=== PATIENT | female | born 1935 | race Two or more races ===

== ENCOUNTER 2016-11-08 16:40 | Inpatient (IN) | payer OTHER, MEDICARE ==
[2016-11-08] MEDS ORDERED: SODIUM CHLORIDE 1,000 ML IV STA (17:20)
--- NOTE | 2016-11-08 17:23 | PDOC ---
History of Present Illness - General History Source: Patient Exam Limitations: No Limitations <Roni Angulo - Last Filed: 11/08/16 19:21> - History of Present Illness Initial Comments: 11/08/16 17:41 The patient is a 80 year old female, with a significant past medical history of Rheumatoid Arthritis, sciatica (medrol dose pack 6mg), PE s/p knee surgery, colon polyps, and GERD, who presents to the emergency department with low-grade fevers (Tmax 99.5F) and persistent cough for a week with new onset of right sided pleuritic chest pain and hypoxia, 81% O2 saturation on room air at PCP office today. She reports her pain radiates from under her right breast to her right flank, worse with deep inspiration and cough. She states her cough keeps her up at night. She states her cough is nonproductive. She reports having a negative cardiac catheterization in 2012. She denies headache and dizziness. She denies fever, chills, nausea, vomit, diarrhea and constipation. She denies dysuria, frequency, urgency and hematuria. Allergies: ciprofloxacin and morphine Social history: Denies toxic habits. Pt is a retired nurse. PCP - Dr. Jem Pedraza <Gloria Dela Cruz - Last Filed: 11/08/16 21:15> - General Chief Complaint: Respiratory Stated Complaint: COUGH, SOB Time Seen by Provider: 11/08/16 16:44 Past History - Past Medical History Anemia: No Asthma: No Cancer: No Cardiac Disorders: No CVA: No COPD: No CHF: No Dementia: No Diabetes: No GI Disorders: Yes (GERD H/O COLONIC POLYPS) Disorders: No HTN: No Hypercholesterolemia: No Liver Disease: No Seizures: No Thyroid Disease: No - Surgical History Abdominal Surgery: Yes Appendectomy: Yes Cardiac Surgery: Yes (CARDIAC CATH NEGATIVE) Cholecystectomy: No Lung Surgery: No Neurologic Surgery: No Orthopedic Surgery: Yes (LEFT KNEE REPLACEMENT 2006 RIGHT KNEE SURGERY) - Psycho/Social/Smoking Cessation Hx Suicidal Ideation: No Smoking History: Unknown if ever smoked Have you smoked in the past 12 months: No Number of Cigarettes Smoked Daily: 0 If you are a former smoker, when did you quit?: 1982 Hx Alcohol Use: No Drug/Substance Use Hx: No Substance Use Type: Alcohol Hx Substance Use Treatment: No <Roni Angulo - Last Filed: 11/08/16 19:21> <Gloria Dela Cruz - Last Filed: 11/08/16 21:15> - Past Medical History Allergies/Adverse Reactions: Allergies Allergy/AdvReac Type Severity Reaction Status Date / Time ciprofloxacin [From Cipro] Allergy Intermediate Rash Verified 11/08/16 16:43 ciprofloxacin HCl Allergy Intermediate Rash Verified 11/08/16 16:43 [From Cipro] morphine Allergy Intermediate rash, Verified 11/08/16 16:43 vomiting Home Medications: Ambulatory Orders Biotin/Calcium Carbonate [Biotin 800 Mcg Tablet] 1 each PO DAILY tablet Cholecalciferol (Vitamin D3) [Vitamin D3] 2,000 unit PO DAILY capsule 06/06/16 Folic Acid 1 mg PO DAILY tablet 09/09/16 Methotrexate Sodium [Methotrexate] 2.5 mg PO 5 TABS ON SUNDAYS tablet 11/08/16 Methylprednisolone [Medrol Dose Ish] 4 mg PO 1 AND 1/2 TABS DAILY tablet Review of Systems - Review of Systems Able to Perform ROS?: Yes Comments:: 11/08/16 17:42 GENERAL/CONSTITUTIONAL: (+) fevers. No chills. No weakness. HEAD, EYES, EARS, NOSE AND THROAT: No change in vision. No ear pain or discharge. No sore throat. CARDIOVASCULAR: No chest pain or shortness of breath. RESPIRATORY: (+) dry cough, pleuritic right-sided chest pain, and hypoxia. wheezing, or hemoptysis. GASTROINTESTINAL: No nausea, vomiting, diarrhea or constipation. GENITOURINARY: No dysuria, frequency, or change in urination. MUSCULOSKELETAL: No joint or muscle swelling or pain. No neck or back pain. SKIN: No rash NEUROLOGIC: No headache, vertigo, loss of consciousness, or change in strength/ sensation. ENDOCRINE: No increased thirst. No abnormal weight change. HEMATOLOGIC/LYMPHATIC: No anemia, easy bleeding, or history of blood clots. ALLERGIC/IMMUNOLOGIC: No hives or skin allergy. <Gloria Dela Cruz - Last Filed: 11/08/16 21:15> *Physical Exam - Vital Signs Last Vital Signs Temp Pulse Resp BP Pulse Ox 99 F 117 H 24 122/103 86 L 11/08/16 16:40 11/08/16 16:40 11/08/16 16:40 11/08/16 16:40 11/08/16 16:40 <Roni Angulo - Last Filed: 11/08/16 19:21> - Vital Signs Last Vital Signs Temp Pulse Resp BP Pulse Ox 99 F 117 H 24 122/103 86 L 11/08/16 16:40 11/08/16 16:40 11/08/16 16:40 11/08/16 16:40 11/08/16 16:40 - Physical Exam Comments: 11/08/16 17:43 GENERAL: Awake, alert, and fully oriented, in no acute distress HEAD: No signs of trauma EYES: PERRLA, EOMI, sclera anicteric, conjunctiva clear ENT: Auricles normal inspection, hearing grossly normal, nares patent, oropharynx clear without exudates. Moist mucosa NECK: Normal ROM, supple, no lymphadenopathy, JVD, or masses LUNGS: (+) crackles at bilateral bases with ttp at right lateral ribs. Breath sounds equal. No wheezes HEART: Regular rate and rhythm, normal S1 and S2, no murmurs, rubs or gallops ABDOMEN: Soft, nontender, normoactive bowel sounds. No guarding, no rebound. No masses EXTREMITIES: Normal range of motion, no edema. No clubbing or cyanosis. No cords, erythema, or tenderness NEUROLOGICAL: Cranial nerves II-XII intact. Normal speech, normal gait. Sensation intact in upper and lower extremities. 5/5 motor strength in upper and lower extremities. No pronator drift. Finger to nose intact. Rapid alternations intact. SKIN: Warm, Dry, normal turgor, no rashes or lesions noted. <Gloria Dela Cruz - Last Filed: 11/08/16 21:15> Heart Score/ECG Review #1 ECG reviewed & interpreted by me at: 17:30 11/08/16 19:21 NSR 98, T wave flat II, III, avF, TWI V3-V6, no std/jenn, QTC 431 msec, normal axis, normal intervals <Roni Angulo - Last Filed: 11/08/16 19:21> ED Treatment Course - LABORATORY CBC & Chemistry Diagram: 11/08/16 17:05 11/08/16 17:05 - RADIOLOGY Radiology Studies Ordered: Category Date Time Status CHEST X-RAY PORTABLE* [RAD] Stat Radiology 11/08/16 17:17 Ordered <AdeleRoni - Last Filed: 11/08/16 19:21> - LABORATORY CBC & Chemistry Diagram: 11/08/16 17:05 11/08/16 17:05 - RADIOLOGY Radiograph Interpretation: 11/08/16 18:29 CXR was read by Dr. Almazan at 18:13 Impression: No active cardiopulmonary disease present 11/08/16 20:20 Chest CTA was read by Dr. Almazan at 20:20 Impression: There is no evidence of pulmonary embolism in the main pulmonary artery and its proximal bifurcations, bilaterally. Interval worsening interstitial and groundglass opacitites suggestive of chronic interstitial lung disease with superimposed infiltrates. No pneumothorax or pleural effusions <Gloria Dela Cruz - Last Filed: 11/08/16 21:15> Medical Decision Making - Medical Decision Making 11/08/16 17:21 A portion of this note was documented by scribe services under my direction. I have reviewed the details of the note, within reason, and agree with the documentation with the following case summary and management plan written by me. Patient treated in the ED. Nursing notes are reviewed and incorporated into the medical decision-making. Vital signs reviewed. Peripheral IV access obtained by the nurse, laboratory studies are drawn and sent, reviewed and interpreted by myself. Vital Signs Temp Pulse Resp BP Pulse Ox 99 F 117 H 24 122/103 86 L 11/08/16 16:40 11/08/16 16:40 11/08/16 16:40 11/08/16 16:40 11/08/16 16:40 80 year old female with past medical history of polymyalgia rheumatica, rheumatoid arthritis, sciatica presents from DR. Pedraza's office for cough, low grade fever, and hypoxemia. The patient was complaining of symptoms for 1 week of URI symptoms. Started to develop a recent R sided pleuritic chest pain. Started to develop SOB and chest congestion. NO production. No recent illnesses , sick contacts, recent travels. Pt went to visit Dr. Pedraza. Noticed that her O2 saturation is 81%. Pt denies chest pain. Came into the ED to r/o PNA. I agree with the plan. Patient will need to r/o PNA. Chest xray. Sepsis protocol. Supplemental nasal cannula brings O2 saturation to 95%. IVF. \ Admit. 11/08/16 19:12 CBC, BMP 11/08/16 17:05 11/08/16 17:05 CMP Sodium 136 mmol/L (136-145) 11/08/16 17:05 Potassium 3.5 mmol/L (3.5-5.1) 11/08/16 17:05 Chloride 101 mmol/L (98-107) 11/08/16 17:05 Carbon Dioxide 25 mmol/L (22-28) 11/08/16 17:05 Anion Gap 10 (8-16) 11/08/16 17:05 BUN 11 mg/dl (7-18) D 11/08/16 17:05 Creatinine 0.7 mg/dl (0.6-1.3) 11/08/16 17:05 Creat Clearance w eGFR > 60 (>60) 11/08/16 17:05 Random Glucose 150 mg/dl (74-106) H D 11/08/16 17:05 Calcium 8.4 mg/dl (8.4-10.2) 11/08/16 17:05 Total Bilirubin 0.7 mg/dl (0.2-1.0) D 11/08/16 17:05 AST 22 U/L (10-42) D 11/08/16 17:05 ALT 19 U/L (10-40) D 11/08/16 17:05 Alkaline Phosphatase 56 U/L (32-92) D 11/08/16 17:05 Total Protein 6.8 g/dl (6.4-8.3) 11/08/16 17:05 Albumin 3.2 g/dl (3.5-5.0) L 11/08/16 17:05 Chest xray reviewed. No acute findings. Given mildly elevated WBC and negative chest xray (and now from what I've found out, that patient has a distant history of PE in setting of knee surgery), will obtain a CTA to r/o PE. CTA chest pending. Case signed out to DR. Varela for further management and disposition. <Roni Angulo - Last Filed: 11/08/16 19:21> *DC/Admit/Observation/Transfer <Roni Angulo - Last Filed: 11/08/16 19:21> - Attestations Scribe Attestion: 11/08/16 17:43 Documentation prepared by Gloria Morenzi, acting as medical billing assistant for Roni Angulo MD, <Gloria Dela Cruz - Last Filed: 11/08/16 21:15> Diagnosis at time of Disposition: Hypoxia, Pneumonia - Discharge Dispostion Condition at time of disposition: Stable - Referrals Referrals: Jem Pedraza MD [Primary Care Provider] -
[2016-11-08 17:40] LABS: BASOPHIL 0.2 % (0-2.0); EOSINOPHIL 0.3 % (0-4.5); MCH 29.1 pg (25.7-33.7); MCHC 33.1 g/dl (32.0-36.0); MEAN CELL VOLUME 88.1 fl (80-96); MEAN PLT VOLUME 8.7 fl (7.5-11.1); PLATELET COUNT 273 K/MM3 (134-434); RDW 15.4 % (11.6-15.6); WHITE BLOOD COUNT 11.6 K/mm3 (4.0-10.8)
[2016-11-08 18:01] LABS: ALBUMIN 3.2 g/dl (3.5-5.0); ALK PHOS 56 U/L (32-92); ANION GAP 10 (8-16); BILIRUBIN,TOTAL 0.7 mg/dl (0.2-1.0); CALCIUM 8.4 mg/dl (8.4-10.2); CO2 25 mmol/L (22-28); COCKROFT - GAULT 87.2695; CREATININE 0.7 mg/dl (0.6-1.3); GLUCOSE,RANDOM 150 mg/dl (74-106); SGOT/AST 22 U/L (10-42); SGPT/ALT 19 U/L (10-40); TOT PROT 6.8 g/dl (6.4-8.3)
[2016-11-08 18:02] LABS: ACTIVATED PTT 24.8 SECONDS (24.0-38.9)
[2016-11-08 18:07] LABS: INR 1.31 (0.82-1.09); PROTHROMBIN TIME (PATIENT) 14.6 SEC (10.2-13.0)
--- NOTE | 2016-11-08 20:28 | PDOC ---
*Physical Exam - Vital Signs Last Vital Signs Temp Pulse Resp BP Pulse Ox 99 F 87 20 135/62 98 11/08/16 16:40 11/08/16 19:00 11/08/16 19:00 11/08/16 19:00 11/08/16 19:00 ED Treatment Course - LABORATORY CBC & Chemistry Diagram: 11/08/16 17:05 11/08/16 17:05 - ADDITIONAL ORDERS Additional order review: Laboratory Results 11/08/16 11/08/16 11/08/16 17:20 17:05 17:05 INR PTT (Actin FS) Sodium 136 Potassium 3.5 Chloride 101 Carbon Dioxide 25 Anion Gap 10 BUN 11 D Creatinine 0.7 Creat Clearance w eGFR > 60 Random Glucose 150 H D Lactic Acid 1.8 Calcium 8.4 Total Bilirubin 0.7 D AST 22 D ALT 19 D Alkaline Phosphatase 56 D B-Natriuretic Peptide 145.85 Total Protein 6.8 Albumin 3.2 L 11/08/16 17:05 INR 1.31 H PTT (Actin FS) 24.8 L Sodium Potassium Chloride Carbon Dioxide Anion Gap BUN Creatinine Creat Clearance w eGFR Random Glucose Lactic Acid Calcium Total Bilirubin AST ALT Alkaline Phosphatase B-Natriuretic Peptide Total Protein Albumin 11/08/16 17:05 RBC 4.36 MCV 88.1 MCHC 33.1 RDW 15.4 D MPV 8.7 Neutrophils % 83.0 H D Lymphocytes % 10.7 D Monocytes % 5.8 Eosinophils % 0.3 Basophils % 0.2 - Medications Given in the ED: ED Medications Discontinued Medications Generic Name Dose Route Start Last Admin Trade Name Freq PRN Reason Stop Dose Admin Sodium Chloride 1,000 mls @ 1,000 mls/hr 11/08/16 17:20 11/08/16 17:45 Normal Saline - IV 11/08/16 18:19 1,000 mls/hr ASDIR STA Administration Progress Note - Progress Note Progress Note: Care of this patient was transferred to ok from Dr. Angulo at 1900 hrs. This is a 80-year-old female who comes in complaining of difficulty breathing and worsening respiratory symptoms. Patient was seen by her primary care doctor and sent in for evaluation. Patient O2 sats on arrival in the emergency room where the mid 80s on oxygen patient's O2 sats improved to the mid 90s. Patient had a workup including a CT [place] of the chest to rule out PE. The CT angiogram chest was negative for pulmonary embolism but does show chronic interstitial lung disease with a superimposed right lower lobe pneumonia. Blood cultures and antibiotics were done Patient will be admitted to an inpatient bed under the hospitalist service. *DC/Admit/Observation/Transfer Diagnosis at time of Disposition: Hypoxia, Pneumonia - Discharge Dispostion Condition at time of disposition: Stable Admit: Yes - Referrals Referrals: Jem Pedraza MD [Primary Care Provider] - - Patient Instructions - Post Discharge Activity
[2016-11-08] MEDS ORDERED: CEFTRIAXONE 1 GM in DEXTROSE 5%-WATER - 50 ML IVPB ONE (20:29)
[2016-11-08] MEDS ORDERED: cefTRIAXone SODIUM 1 GM VIAL ONE (20:30)
[2016-11-08 20:51] LABS: URINE APPEARANCE Clear; URINE BILIRUBIN Negative (NEGATIVE); URINE BLOOD 1+ (NEGATIVE); URINE COLOR YELLOW; URINE GLUCOSE (UA) Negative (NEGATIVE); URINE KETONE Negative (NEGATIVE); URINE LEUK ESTERASE Negative (NEGATIVE); URINE NITRITE Negative (NEGATIVE); URINE PROTEIN 1+ (NEGATIVE); URINE UROBILINOGEN 0.2 E.U/dl (0.2-1.0)
--- NOTE | 2016-11-08 20:51 | HP ---
CHIEF COMPLAINT: SOB, Cough PCP: Dr. Pedraza HISTORY OF PRESENT ILLNESS: This is a 80 y/o woman with a past medical history of Rheumatoid Arthritis (on Prednisone, Methotrexate), PE (s/p L- knee replacement), Sciatica. Who presents to the ED from her PCP's office with Hypoxia- Spo2 81% in the office and SOB x 4 -5 days. Patient reports having subjective fevers 99.5 at home. Patient reports increased GARCIA. Patient denies chills, dizziness, CP, AP, N/V/D, dysuria. Patient denies recent travel or sick contacts. 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 Family History: Mother: Alzheimer's, [place]- age 84 Father: Allergies ciprofloxacin [From Cipro] Allergy (Intermediate, Verified 11/08/16 16:43) Rash ciprofloxacin HCl [From Cipro] Allergy (Intermediate, Verified 11/08/16 16:43) Rash morphine Allergy (Intermediate, Verified 11/08/16 16:43) rash, vomiting HOME MEDICATIONS: Home Medications Medication Instructions Recorded Biotin/Calcium Carbonate [Biotin 1 each PO DAILY tablet 05/01/15 800 Mcg Tablet] Cholecalciferol (Vitamin D3) 2,000 unit PO DAILY capsule 06/06/16 [Vitamin D3] Folic Acid 1 mg PO DAILY tablet 09/09/16 Methotrexate Sodium [Methotrexate] 2.5 mg PO 5 TABS ON SUNDAYS tablet 11/08/16 Methylprednisolone [Medrol Dose 4 mg PO 1 AND 1/2 TABS DAILY 11/08/16 Ish] tablet REVIEW OF SYSTEMS CONSTITUTIONAL: fever Absent: chills, diaphoresis, generalized weakness, malaise, loss of appetite, weight change HEENT: Absent: rhinorrhea, nasal congestion, throat pain, throat swelling, difficulty swallowing, mouth swelling, ear pain, eye pain, visual changes CARDIOVASCULAR: Absent: chest pain, syncope, palpitations, irregular heart rate, lightheadedness , peripheral edema RESPIRATORY: shortness of breath, dyspnea with exertion Absent: cough, orthopnea, wheezing, stridor, hemoptysis GASTROINTESTINAL: constipation Absent: abdominal pain, abdominal distension, nausea, vomiting, diarrhea, melena , hematochezia GENITOURINARY: Absent: dysuria, frequency, urgency, hesitancy, hematuria, flank pain, genital pain MUSCULOSKELETAL: Absent: myalgia, arthralgia, joint swelling, back pain, neck pain SKIN: Absent: rash, itching, pallor HEMATOLOGIC/IMMUNOLOGIC: Absent: easy bleeding, easy bruising, lymphadenopathy, frequent infections ENDOCRINE: Absent: unexplained weight gain, unexplained weight loss, heat intolerance, cold intolerance NEUROLOGIC: Absent: headache, focal weakness or paresthesias, dizziness, unsteady gait, seizure, mental status changes, bladder or bowel incontinence PSYCHIATRIC: Absent: anxiety, depression, suicidal or homicidal ideation, hallucinations. PHYSICAL EXAMINATION Vital Signs - 24 hr 11/08/16 11/08/16 11/08/16 16:40 16:45 19:00 Temperature 99 F Pulse Rate 117 H 110 H Pulse Rate [ 87 Left Apical] Respiratory 24 20 Rate Blood Pressure 122/103 Blood Pressure 135/62 [Right Arm] O2 Sat by Pulse 86 L 95 98 Oximetry (%) 11/08/16 20:33 Temperature 97.8 F Pulse Rate Pulse Rate [ 89 Left Apical] Respiratory 31 H Rate Blood Pressure Blood Pressure 136/62 [Right Arm] O2 Sat by Pulse 97 Oximetry (%) GENERAL: Awake, alert, and fully oriented, in no acute distress. HEAD: Normal with no signs of trauma. EYES: Pupils equal, round and reactive to light, extraocular movements intact, sclera anicteric, conjunctiva clear. No lid lag. EARS, NOSE, THROAT: Ears normal, nares patent, oropharynx clear without exudates. Moist mucous membranes. NECK: Normal range of motion, supple without lymphadenopathy, JVD, or masses. LUNGS: Air exchange to Left lobes, RUL, RML, diminished to RLL. No wheezes, and no crackles. No accessory muscle use. HEART: Regular rate and rhythm, normal S1 and S2 without murmur, rub or gallop. ABDOMEN: Soft, nontender, not distended, normoactive bowel sounds, no guarding, no rebound, no masses. No hepatomegaly or splenomegaly. MUSCULOSKELETAL: Normal range of motion at all joints. No bony deformities or tenderness. No CVA tenderness. UPPER EXTREMITIES: 2+ pulses, warm, well-perfused. No cyanosis. No clubbing. No peripheral edema. LOWER EXTREMITIES: 2+ pulses, warm, well-perfused. No calf tenderness. No peripheral edema. NEUROLOGICAL: Cranial nerves II-XII intact. Normal speech. Normal gait. PSYCHIATRIC: Cooperative. Good eye contact. Appropriate mood and affect. SKIN: Warm, dry, normal turgor, no rashes or lesions noted, normal capillary refill. Laboratory Results - last 24 hr 11/08/16 11/08/16 11/08/16 17:05 17:05 17:05 WBC 11.6 H D RBC 4.36 Hgb 12.7 Hct 38.4 MCV 88.1 MCHC 33.1 RDW 15.4 D Plt Count 273 MPV 8.7 Neutrophils % 83.0 H D Lymphocytes % 10.7 D Monocytes % 5.8 Eosinophils % 0.3 Basophils % 0.2 INR 1.31 H PTT (Actin FS) 24.8 L Sodium 136 Potassium 3.5 Chloride 101 Carbon Dioxide 25 Anion Gap 10 BUN 11 D Creatinine 0.7 Creat Clearance w eGFR > 60 Random Glucose 150 H D Lactic Acid Calcium 8.4 Total Bilirubin 0.7 D AST 22 D ALT 19 D Alkaline Phosphatase 56 D B-Natriuretic Peptide Total Protein 6.8 Albumin 3.2 L 11/08/16 11/08/16 17:05 17:20 WBC RBC Hgb Hct MCV MCHC RDW Plt Count MPV Neutrophils % Lymphocytes % Monocytes % Eosinophils % Basophils % INR PTT (Actin FS) Sodium Potassium Chloride Carbon Dioxide Anion Gap BUN Creatinine Creat Clearance w eGFR Random Glucose Lactic Acid 1.8 Calcium Total Bilirubin AST ALT Alkaline Phosphatase B-Natriuretic Peptide 145.85 Total Protein Albumin ASSESSMENT/PLAN: This is a 80 y/o woman with RA, PE, Sciatica, Admitted for RLL, Hypoxia for further evaluation of their emergent condition. Plan: 1. Community Acquired Pneumonia - CURB65 Score 2 - Blood Cultures-pending - CTA- No PE, RLL - Ceftriaxone given in ED - Ordered Azithromycin in addition to Ceftriaxone for CAP, will continue - Urine Legionella in am - Duonebs prn - O2 - Will repeat CBC, BMP in am - Tylenol prn 2. Hypoxia - Likely secondary to PNA vs PE vs Interstitial Lung Disease - CTA- neg for PE - Patient's Spo2 improved with O2 - Consider ABG if condition worsens - f/u with Pulm in outpatient upon d/c - Monitor Spo2 3. Rheumatoid Arthritis - Continue Prednisone, Methotrexate - f/u with Rod Tape Operator outpatient 4. DVT Prophylaxis - OOB - SCDs - Heparin SQ 5. FEN - Tolerates PO fluids - Replete lytes prn - Regular Diet Dispo: Continue Inpatient care Problem List - Problem (1) Pneumonia Code(s): J18.9 - PNEUMONIA, UNSPECIFIED ORGANISM (2) Hypoxia Code(s): R09.02 - HYPOXEMIA (3) Rheumatoid arthritis Code(s): M06.9 - RHEUMATOID ARTHRITIS, UNSPECIFIED (4) Hx pulmonary embolism Code(s): Z86.711 - PERSONAL HISTORY OF PULMONARY EMBOLISM (5) Sciatica Code(s): M54.30 - SCIATICA, UNSPECIFIED SIDE (6) DVT prophylaxis Code(s): TQN4426 - Visit type - Emergency Visit Emergency Visit: Yes ED Registration Date: 11/08/16 Care time: The patient presented to the Emergency Department on the above date and was hospitalized for further evaluation of their emergent condition. - New Patient This patient is new to me today: Yes Date on this admission: 11/08/16 - Critical Care Critical Care patient: No
[2016-11-08] MEDS ORDERED: ONDANSETRON 4 MG/2 ML VIAL IVPB PRN (20:53)
[2016-11-08] MEDS ORDERED: AZITHROMYCIN IVPB 250 ML IVPB ONE (21:11)
[2016-11-08 21:12] LABS: URINE WBC 0.3 (3-5)
[2016-11-08 21:45] VITALS: BMI 32.4
[2016-11-08] MEDS: HEPARIN NA (PORCINE) 5,000 UNITS/ML 1ML VIAL SQ SCH (22:01)
[2016-11-09] MEDS: HEPARIN NA (PORCINE) 5,000 UNITS/ML 1ML VIAL SQ SCH ×3 (06:56→21:47)
[2016-11-09 08:29] LABS: ANION GAP 8 (8-16); BASOPHIL 0.1 % (0-2.0); CALCIUM 8.2 mg/dl (8.4-10.2); CO2 28 mmol/L (22-28); CREATININE 0.7 mg/dl (0.6-1.3); EOSINOPHIL 1.4 % (0-4.5); GLUCOSE,RANDOM 113 mg/dl (74-106); MCH 29.2 pg (25.7-33.7); MEAN CELL VOLUME 88.3 fl (80-96); MEAN PLT VOLUME 8.7 fl (7.5-11.1); NEUTROPHILS 76.5 % (42.8-82.8); PLATELET COUNT 234 K/MM3 (134-434); RDW 15.4 % (11.6-15.6); WHITE BLOOD COUNT 11.1 K/mm3 (4.0-10.8)
[2016-11-09] MEDS: FOLIC ACID 1 MG TABLET (FP) PO SCH (09:29)
[2016-11-09] MEDS: CEFTRIAXONE 50 ML IVPB SCH (09:29)
[2016-11-09] MEDS: CHOLECALCIFEROL (VITAMIN D3) 1,000 UNIT TABLET (FP) PO SCH (09:30)
[2016-11-09] MEDS: methylPREDNISolone 4 MG TABLET PO SCH (09:30)
[2016-11-09] MEDS: AZITHROMYCIN IVPB 250 ML IVPB SCH (10:09)
--- NOTE | 2016-11-09 13:58 | PN ---
Physical Exam: SUBJECTIVE: Patient seen and examined at bedside. at bedside. Pt states she feels less SOB at rest but worsens with ambulation. OBJECTIVE: Vital Signs 3 Period Temp Pulse Resp BP Sys/Melgoza Pulse Ox Last 24 Hr 98.3 F-98.5 F 73-84 18-19 115-132/53-61 96-98 GENERAL: The patient is awake, alert, and fully oriented, in no acute distress. HEAD: Normal with no signs of trauma. EYES: PERRL, extraocular movements intact, sclera anicteric, conjunctiva clear. No ptosis. ENT: Ears normal, nares patent, oropharynx clear without exudates, moist mucous membranes. NECK: Trachea midline, full range of motion, supple. LUNGS: Breath sounds equal, clear to auscultation bilaterally, no wheezes, no crackles, no accessory muscle use. HEART: Regular rate and rhythm, S1, S2. 2/6 Systolic murmur present. No rub or gallop. ABDOMEN: Soft, nontender, nondistended, normoactive bowel sounds, no guarding, no rebound, no hepatosplenomegaly, no masses. EXTREMITIES: 2+ pulses, warm, well-perfused. Dependant edema present. NEUROLOGICAL: Cranial nerves II through XII grossly intact. Normal speech, gait steady. PSYCH: Normal mood, normal affect. SKIN: Warm, dry, normal turgor, no rashes or lesions noted Laboratory Results - last 24 hr 3 11/09/16 11/09/16 07:33 07:33 WBC 11.1 H RBC 3.99 Hgb 11.6 Hct 35.3 MCV 88.3 MCHC 33.0 RDW 15.4 Plt Count 234 MPV 8.7 Neutrophils % 76.5 Lymphocytes % 14.8 D Monocytes % 7.2 Eosinophils % 1.4 D Basophils % 0.1 Sodium 139 Potassium 3.7 Chloride 103 Carbon Dioxide 28 Anion Gap 8 BUN 9 Creatinine 0.7 Random Glucose 113 H D Calcium 8.2 L Active Medications 3 Generic Name Dose Route Start Last Admin Trade Name Freq PRN Reason Stop Dose Admin Acetaminophen 650 mg 11/09/16 01:09 Tylenol - PO Q6H PRN FEVER OR PAIN Cholecalciferol 2,000 unit 11/09/16 10:00 11/09/16 09:30 Vitamin D3 - PO 2,000 unit DAILY PEPPER Administration Folic Acid 1 mg 06/10/17 10:00 11/09/16 09:29 Folic Acid - PO 1 mg DAILY PEPPER Administration Heparin Sodium (Porcine) 5,000 unit 11/08/16 22:00 11/09/16 13:29 Heparin - SQ 5,000 unit TID PEPPER Administration Azithromycin 250 mls @ 250 mls/hr 11/09/16 10:00 11/09/16 10:09 Zithromax 500mg Ivpb (Pre-Docked) IVPB 250 mls/hr DAILY PEPPER Administration Ceftriaxone Sodium 50 mls @ 100 mls/hr 11/09/16 10:00 11/09/16 09:29 Rocephin 1gm Ivpb (Pre-Docked) IVPB 100 mls/hr DAILY PEPPER Administration Methotrexate 12.5 mg 11/10/16 10:00 Mexate - PO Davis@1000 PEPPER Methylprednisolone 6 mg 11/09/16 10:00 11/09/16 09:30 Medrol - PO 6 mg DAILY PEPPER Administration Non-Formulary Medication 1 each 11/09/16 10:00 Biotin/Calcium Carbonate [Biotin 800 Mcg Tablet] PO DAILY PEPPER Ondansetron HCl 4 mg 11/08/16 20:53 Zofran Injection IVPB Q6H PRN NAUSEA Imaging: CTA as read by Dr. Almazan- No evidence of PE. Interval worsening interstitial and ground glass opacities suggestive of chronic ILD with superimposed infiltrates. No PTX or pleural effusion is noted. CXR as read by Dr. Almazan- Mild perihilar lung markings. Mediastinum and osseous structures appear intact. ASSESSMENT/PLAN: A: 80yo woman with PMH RA and remote PE who has CAP with GARCIA. Given dependant pedal edema and murmur, will get echo. CURB 65- 2. BNP WNL. P: 1. Community Acquired Pneumonia - Continue Rocephin and Zithromax - Urine Legionella pending - Combivent prn - WBC downtrending - Blood Cultures-pending - Will repeat CBC, BMP in am - Tylenol prn 2. Hypoxia - Likely secondary to PNA vs Interstitial Lung Disease vs CHF - Echo - Spo2 improved with O2 - Spo2 decreases to 92% with ambulation - Consider ABG if condition worsens - Monitor Spo2 3. Rheumatoid Arthritis - Continue Prednisone, Methotrexate - f/u with Business Analytics Director outpatient 4. DVT Prophylaxis - OOB - SCDs - Heparin SQ 5. FEN - Tolerates PO fluids - Replete electrolytes prn - Regular Diet Dispo: Patient requires continued inpatient evaluation of acute medical conditions. Code Status: FULL CODE Visit type - Emergency Visit Emergency Visit: Yes ED Registration Date: 11/08/16 Care time: The patient presented to the Emergency Department on the above date and was hospitalized for further evaluation of their emergent condition. - New Patient This patient is new to me today: Yes Date on this admission: 11/10/16 - Critical Care Critical Care patient: No
[2016-11-09] MEDS: guaiFENesin 200 MG/10 ML 10 ML UNIT-DOSE CUPS PO PRN (21:47)
[2016-11-09 22:10] LABS: TROPONIN I (DFP) < 0.03 ng/ml (0.03-0.50)
[2016-11-09 23:21] LABS: CPK(DFH) 47 IU/L (26-140)
[2016-11-10] MEDS: ACETAMINOPHEN 325 MG TABLET (FP) PO PRN (06:51)
[2016-11-10] MEDS: guaiFENesin 200 MG/10 ML 10 ML UNIT-DOSE CUPS PO PRN ×2 (06:51→21:41)
[2016-11-10] MEDS: HEPARIN NA (PORCINE) 5,000 UNITS/ML 1ML VIAL SQ SCH ×3 (06:51→21:41)
[2016-11-10 08:47] LABS: BASOPHIL 0.3 % (0-2.0); EOSINOPHIL 1.9 % (0-4.5); MCH 29.2 pg (25.7-33.7); MCHC 32.7 g/dl (32.0-36.0); MEAN CELL VOLUME 89.4 fl (80-96); NEUTROPHILS 70.4 % (42.8-82.8); PLATELET COUNT 226 K/MM3 (134-434); RDW 15.3 % (11.6-15.6); WHITE BLOOD COUNT 8.7 K/mm3 (4.0-10.8)
--- NOTE | 2016-11-10 09:44 | PN ---
Physical Exam: SUBJECTIVE: Patient seen and examined at bedside. States she feels less SOB overnight. OBJECTIVE: Vital Signs Period Temp Pulse Resp BP Sys/Melgoza Pulse Ox Last 24 Hr 98.4 F-98.9 F 75-81 17-20 121-127/52-71 98-100 GENERAL: The patient is awake, alert, and fully oriented, in no acute distress. HEAD: Normal with no signs of trauma. EYES: PERRL, extraocular movements intact, sclera anicteric, conjunctiva clear. No ptosis. ENT: Ears normal, nares patent, oropharynx clear without exudates, moist mucous membranes. NECK: Trachea midline, full range of motion, supple. LUNGS: Breath sounds equal, clear to auscultation bilaterally, no crackles, no accessory muscle use. Fine crackles noted in right base. HEART: Regular rate and rhythm, S1, S2 without rub or gallop. 2/6 systolic murmur present. ABDOMEN: Soft, nontender, nondistended, normoactive bowel sounds, no guarding, no rebound, no hepatosplenomegaly, no masses. EXTREMITIES: 2+ pulses, warm, well-perfuse. Dependant pedal edema. NEUROLOGICAL: Cranial nerves II through XII grossly intact. Normal speech, gait not observed. PSYCH: Normal mood, normal affect. SKIN: Warm, dry, normal turgor, no rashes or lesions noted Laboratory Results - last 24 hr 3 11/09/16 11/09/16 11/09/16 18:00 18:52 22:25 WBC RBC Hgb Hct MCV MCHC RDW Plt Count MPV Neutrophils % Lymphocytes % Monocytes % Eosinophils % Basophils % Creatine Kinase 47 Troponin I Cancelled < 0.03 L < 0.03 L 3 11/10/16 06:20 WBC 8.7 RBC 3.71 Hgb 10.8 Hct 33.1 MCV 89.4 MCHC 32.7 RDW 15.3 Plt Count 226 MPV 9.0 Neutrophils % 70.4 Lymphocytes % 17.9 D Monocytes % 9.5 Eosinophils % 1.9 Basophils % 0.3 Creatine Kinase Troponin I Active Medications 3 Generic Name Dose Route Start Last Admin Trade Name Freq PRN Reason Stop Dose Admin Acetaminophen 650 mg 11/09/16 01:09 11/10/16 06:51 Tylenol - PO 650 mg Q6H PRN Administration FEVER OR PAIN Cholecalciferol 2,000 unit 11/09/16 10:00 11/09/16 09:30 Vitamin D3 - PO 2,000 unit DAILY PEPPER Administration Folic Acid 1 mg 11/09/16 10:00 11/09/16 09:29 Folic Acid - PO 1 mg DAILY PEPPER Administration Guaifenesin 10 ml 11/09/16 21:33 11/10/16 06:51 Robitussin - PO 10 ml Q6H PRN Administration COUGH Heparin Sodium (Porcine) 5,000 unit 11/08/16 22:00 11/10/16 06:51 Heparin - SQ 5,000 unit TID PEPPER Administration Azithromycin 250 mls @ 250 mls/hr 11/09/16 10:00 11/09/16 10:09 Zithromax 500mg Ivpb (Pre-Docked) IVPB 250 mls/hr DAILY [facility] Administration Ceftriaxone Sodium 50 mls @ 100 mls/hr 11/09/16 10:00 11/09/16 09:29 Rocephin 1gm Ivpb (Pre-Docked) IVPB 100 mls/hr DAILY [facility] Administration Methotrexate 12.5 mg 11/10/16 10:00 Mexate - PO Davis@1000 PEPPER Methylprednisolone 6 mg 11/09/16 10:00 11/09/16 09:30 Medrol - PO 6 mg DAILY PEPPER Administration Non-Formulary Medication 1 each 11/09/16 10:00 Biotin/Calcium Carbonate [Biotin 800 Mcg Tablet] PO DAILY PEPPER Ondansetron HCl 4 mg 11/08/16 20:53 Zofran Injection IVPB Q6H PRN NAUSEA Imaging: CTA as read by Dr. Almazan- No evidence of PE. Interval worsening interstitial and ground glass opacities suggestive of chronic ILD with superimposed infiltrates. No PTX or pleural effusion is noted. CXR as read by Dr. Almazan- Mild perihilar lung markings. Mediastinum and osseous structures appear intact. ASSESSMENT/PLAN: A: 80yo woman with PMH RA and remote PE who has CAP with GARCIA. Given dependant pedal edema and murmur, will get echo. CURB 65- 2. BNP WNL. P: 1. Community Acquired Pneumonia - Continue Rocephin and Zithromax - Urine Legionella pending - Combivent prn - WBC downtrending->8.7 today - Blood Cultures-pending - Will repeat CBC, BMP in am - Tylenol prn 2. Hypoxia - Likely secondary to PNA vs Interstitial Lung Disease vs CHF - Echo pending - Spo2 improved with O2 - Spo2 decreases to 78% with ambulation - Consider ABG if condition worsens - Monitor Spo2 - home O2 3. Rheumatoid Arthritis - Continue Prednisone, Methotrexate - f/u with Software Tools Engineer outpatient 4. DVT Prophylaxis - OOB - SCDs - Heparin SQ 5. FEN - Tolerates PO fluids - Replete electrolytes prn - Regular Diet Dispo: Patient requires continued inpatient evaluation of acute medical conditions. Code Status: FULL CODE Visit type - Emergency Visit Emergency Visit: Yes ED Registration Date: 11/08/16 Care time: The patient presented to the Emergency Department on the above date and was hospitalized for further evaluation of their emergent condition. - New Patient This patient is new to me today: Yes Date on this admission: 11/10/16 - Critical Care Critical Care patient: No
[2016-11-10] MEDS: CEFTRIAXONE 50 ML IVPB SCH (09:53)
[2016-11-10] MEDS: CHOLECALCIFEROL (VITAMIN D3) 1,000 UNIT TABLET (FP) PO SCH (09:53)
[2016-11-10] MEDS: FOLIC ACID 1 MG TABLET (FP) PO SCH (09:53)
[2016-11-10] MEDS: methylPREDNISolone 4 MG TABLET PO SCH (09:54)
[2016-11-10] MEDS ORDERED: METHOTREXATE 2.5 MG TABLET PO SCH (10:00)
[2016-11-10] MEDS: AZITHROMYCIN IVPB 250 ML IVPB SCH (10:23)
[2016-11-10 10:48] LABS: CALCIUM 7.9 mg/dl (8.4-10.2); COCKROFT - GAULT 101.2605; CREATININE 0.6 mg/dl (0.6-1.3)
[2016-11-11] MEDS: guaiFENesin 200 MG/10 ML 10 ML UNIT-DOSE CUPS PO PRN ×2 (02:58→21:05)
[2016-11-11] MEDS: HEPARIN NA (PORCINE) 5,000 UNITS/ML 1ML VIAL SQ SCH ×3 (06:06→21:05)
[2016-11-11] MEDS ORDERED: ALBUTEROL SO4 2.5/IPRATROPIUM 0.5 INH SOL 3 ML VIAL.NEB. NEB PRN (07:38)
[2016-11-11 08:22] LABS: BASOPHIL 0.2 % (0-2.0); EOSINOPHIL 2.4 % (0-4.5); MCHC 32.8 g/dl (32.0-36.0); MEAN CELL VOLUME 88.4 fl (80-96); MEAN PLT VOLUME 8.7 fl (7.5-11.1); NEUTROPHILS 72.5 % (42.8-82.8); PLATELET COUNT 235 K/MM3 (134-434); RDW 15.4 % (11.6-15.6); WHITE BLOOD COUNT 8.4 K/mm3 (4.0-10.8)
[2016-11-11 09:05] LABS: ANION GAP 8 (8-16); CALCIUM 8.3 mg/dl (8.4-10.2); CO2 30 mmol/L (22-28); CREATININE 0.6 mg/dl (0.6-1.3); GLUCOSE,RANDOM 114 mg/dl (74-106)
[2016-11-11] MEDS: CEFTRIAXONE 50 ML IVPB SCH (09:32)
[2016-11-11] MEDS: AZITHROMYCIN IVPB 250 ML IVPB SCH (09:32)
[2016-11-11] MEDS: methylPREDNISolone 4 MG TABLET PO SCH (09:33)
[2016-11-11] MEDS: CHOLECALCIFEROL (VITAMIN D3) 1,000 UNIT TABLET (FP) PO SCH (09:33)
[2016-11-11] MEDS: FOLIC ACID 1 MG TABLET (FP) PO SCH (09:33)
--- NOTE | 2016-11-11 10:14 | PN ---
Physical Exam: SUBJECTIVE: Patient seen and examined, patient reports ongoing cough and dypsnea upon exertion. patient denies any chest pain,and shortness of breath. OBJECTIVE: patient is a 80 y/o female with a past medical history of RA and PE. Patient was admitted from the emergency department for bilateral pneumonia. Vital Signs Period Temp Pulse Resp BP Sys/Melgoza Pulse Ox Last 24 Hr 98.4 F-99.1 F 72-80 17-20 132-140/59-67 96-100 GENERAL: The patient is awake, alert, and fully oriented, in no acute distress. HEAD: Normal with no signs of trauma. EYES: PERRL, extraocular movements intact, sclera anicteric, conjunctiva clear. No ptosis. ENT: Ears normal, nares patent, oropharynx clear without exudates, moist mucous membranes. NECK: Trachea midline, full range of motion, supple. LUNGS: Breath sounds equal,clear to apexes, billateral crackles noted, R>L. no wheezes, RR 24, no accessory muscle use. HEART: Regular rate and rhythm, S1, S2 without murmur, rub or gallop. ABDOMEN: Soft, nontender, nondistended, normoactive bowel sounds, no guarding, no rebound, no hepatosplenomegaly, no masses. EXTREMITIES: 2+ pulses, warm, well-perfused, no edema. NEUROLOGICAL: Cranial nerves II through XII grossly intact. Normal speech, gait not observed. PSYCH: Normal mood, normal affect. SKIN: Warm, dry, normal turgor, no rashes or lesions noted Laboratory Results - last 24 hr 11/10/16 11/11/16 11/11/16 06:00 07:32 07:32 WBC 8.4 RBC 3.67 Hgb 10.6 L Hct 32.5 MCV 88.4 MCHC 32.8 RDW 15.4 Plt Count 235 MPV 8.7 Neutrophils % 72.5 Lymphocytes % 17.2 Monocytes % 7.7 Eosinophils % 2.4 Basophils % 0.2 Sodium 143 140 Potassium 3.6 3.3 L Chloride 104 102 Carbon Dioxide 30 H 30 H Anion Gap 9 8 BUN 10 7 D Creatinine 0.6 0.6 Random Glucose 110 H 114 H Calcium 7.9 L 8.3 L Active Medications Generic Name Dose Route Start Last Admin Trade Name Freq PRN Reason Stop Dose Admin Acetaminophen 650 mg 11/09/16 01:09 11/10/16 06:51 Tylenol - PO 650 mg Q6H PRN Administration FEVER OR PAIN Albuterol/Ipratropium 1 amp 11/11/16 07:38 11/11/16 09:35 Duoneb - NEB 1 amp Q6H PRN Administration SHORTNESS OF BREATH Cholecalciferol 2,000 unit 11/09/16 10:00 11/11/16 09:33 Vitamin D3 - PO 2,000 unit DAILY PEPPER Administration Folic Acid 1 mg 11/09/16 10:00 11/11/16 09:33 Folic Acid - PO 1 mg DAILY PEPPER Administration Guaifenesin 10 ml 11/09/16 21:33 11/11/16 02:58 Robitussin - PO 10 ml Q6H PRN Administration COUGH Heparin Sodium (Porcine) 5,000 unit 11/08/16 22:00 11/11/16 06:06 Heparin - SQ 5,000 unit TID [facility] Administration Azithromycin 250 mls @ 250 mls/hr 11/09/16 10:00 11/11/16 09:32 Zithromax 500mg Ivpb (Pre-Docked) IVPB 250 mls/hr DAILY [facility] Administration Ceftriaxone Sodium 50 mls @ 100 mls/hr 11/09/16 10:00 11/11/16 09:32 Rocephin 1gm Ivpb (Pre-Docked) IVPB 100 mls/hr DAILY [facility] Administration Methotrexate 12.5 mg 11/10/16 10:00 11/10/16 10:23 Mexate - PO 12.5 mg Davis@1000 PEPPER Administration Methylprednisolone 6 mg 11/09/16 10:00 11/11/16 09:33 Medrol - PO 6 mg DAILY [facility] Administration Ondansetron HCl 4 mg 11/08/16 20:53 Zofran Injection IVPB Q6H PRN NAUSEA Microbiology 11/08/16 17:20 Blood - Peripheral Venous Blood Culture - Preliminary NO GROWTH OBTAINED AFTER 48 HOURS, INCUBATION TO CONTINUE FOR 3 DAYS. 11/08/16 17:05 Blood - Peripheral Venous Blood Culture - Preliminary NO GROWTH OBTAINED AFTER 48 HOURS, INCUBATION TO CONTINUE FOR 3 DAYS. 11/08/16 21:54 Urine - Urine Clean Catch Urine Culture - Final Contaminated: Please Repeat Imaging: CTA as read by Dr. Almazan- No evidence of PE. Interval worsening interstitial and ground glass opacities suggestive of chronic ILD with superimposed infiltrates. No PTX or pleural effusion is noted. CXR as read by Dr. Almazan- Mild perihilar lung markings. Mediastinum and osseous structures appear intact. ASSESSMENT/PLAN: 1) pulm Community Acquired Pneumonia - Continue Rocephin and Zithromax (11/09 - ) - Urine Legionella pending - standing duonebs - pending sputum culture - no leukocytosis, pt afebrile - pending echo - interstital lung disease likely secondary from RA, pt is a former tobaco smoker, ? underlying copd, appreciate pulmonary input - keep spo2 above 92% with prn oxygen 2. Rheumatoid Arthritis - Continue Prednisone, Methotrexate - f/u with Parking Meter Servicer outpatient 3. DVT Prophylaxis - OOB - SCDs - Heparin SQ 4. FEN - Tolerates PO fluids - Replete electrolytes prn - Regular Diet Dispo: Patient requires continued inpatient evaluation of acute medical conditions. Code Status: FULL CODE Visit type - Emergency Visit Emergency Visit: Yes ED Registration Date: 11/08/16 Care time: The patient presented to the Emergency Department on the above date and was hospitalized for further evaluation of their emergent condition. - New Patient This patient is new to me today: No - Critical Care Critical Care patient: No - Discharge Referral Referred to [facility] Med P.C.: No
[2016-11-11] MEDS ORDERED: POTASSIUM CHLORIDE TABS 20 MEQ TABLET.ER (FP) PO ONE (10:30)
[2016-11-11] MEDS: RANITIDINE HCL 150 MG TABLET (FP) PO SCH (10:41)
--- NOTE | 2016-11-11 10:42 | PN ---
Progress Note (short form) - Note Progress Note: PULMONARY CONSULTATION DICTATED 11/11/16 IMP ACUTE HYPOXEMIC RESPIRATORY FAILURE PNEUMONIA ILD RA H/O PE PROVOKED PLAN IV ANTIBIOTICS INHALED BRONCHODILATORS NASAL O2 CULTURES PFTS OUTPATIENT F/U CHEST CT 6 WKS CONSIDER BACTRIM FOR PCP PROPHYLAXIS CHECK O2 SAT AT REST AND POST EXERCISE ON RA PRIOR TO DISCHARGE T0 DETERMINE IF PT IS A CANDIDATE FOR HOME O2 DR CLAUDIO Problem List - Problems (1) Hx pulmonary embolism Code(s): Z86.711 - PERSONAL HISTORY OF PULMONARY EMBOLISM (2) Hypoxia Code(s): R09.02 - HYPOXEMIA (3) Pneumonia Code(s): J18.9 - PNEUMONIA, UNSPECIFIED ORGANISM (4) Rheumatoid arthritis Code(s): M06.9 - RHEUMATOID ARTHRITIS, UNSPECIFIED (5) Sciatica Code(s): M54.30 - SCIATICA, UNSPECIFIED SIDE (6) Acute hypoxemic respiratory failure Code(s): J96.01 - ACUTE RESPIRATORY FAILURE WITH HYPOXIA (7) Interstitial lung disease Code(s): J84.9 - INTERSTITIAL PULMONARY DISEASE, UNSPECIFIED
[2016-11-11] MEDS: LACTOBACILLUS ACIDOPHILUS 1 EACH TAB (FP) PO SCH (10:48)
[2016-11-11 11:54] LABS: MAGNESIUM 2.1 mg/dL (1.8-2.4)
--- NOTE | 2016-11-11 13:30 | CONS ---
DATE OF CONSULTATION: 11/11/2016 REFERRING PHYSICIAN: Oxana Cruz NP The patient is a 80-year-old black female; past medical history of rheumatoid arthritis maintained on Medrol and methotrexate, history of pulmonary embolism, status post left knee replacement, history of sciatica. Admitted to [facility] on November 08 with complaint of increasing shortness of breath, dyspnea on exertion, fevers and chills, cough/nonproductive. Patient apparently had subjective fevers at home. She noted increasing shortness of breath and cough. Of note is she states for the past year or so, she started noticing increasing shortness of breath with exertion. Initially, it was with walking up inclines, which she developed marked dyspnea. Her symptoms increased in severity. Now, she developed shortness of breath with walking a moderate pace on level ground. She has a history of smoking, quit in 1980. There is no history of occupational exposure to chemicals or fumes. There is no history of respiratory failure in the past or ventilatory support. There is no history of recent travel. On admission, the patient was noted to be hypoxic with an O2 saturation of 85% in the emergency room for which she was placed on supplemental O2 3 L. PAST MEDICAL HISTORY: Again includes rheumatoid arthritis, history of pulmonary embolus (provoked) and sciatica. SURGICAL HISTORY: Left total knee replacement and ankle surgery. REVIEW OF SYSTEMS: Positive dyspnea, positive cough, positive shortness of breath. No wheezing, no chest pain, no palpitations, no hemoptysis, no abdominal pain. CURRENT MEDICATIONS: Include Zofran, Medrol 6 mg daily, Tylenol, Zithromax, Ceftriaxone, Bacid, methotrexate, DuoNeb, Robitussin, Zantac, folic acid and vitamin D3. PHYSICAL EXAMINATION: General: The patient is a well-developed, well-nourished female; awake, alert, in no acute distress. Vital signs: She is afebrile. Blood pressure 133/67, respiratory rate is 17. O2 saturation is 100% on 3 L nasal cannula. HEENT: Normocephalic, atraumatic. Neck: Supple Heart: Regular with S1, S2. Chest: Bilateral crackles throughout. Abdomen: Soft. Bowel sounds are positive. Extremities: No cyanosis or edema. LABORATORIES: WBC is 8.4, hemoglobin 10.6, hematocrit 32.5 with a platelet count of 235,000. INR is 1.31. BUN is 7, creatinine 0.6. BNP is pending. Chest CT: There is interstitial thickening and ground-glass opacities throughout both lung mckay and bronchiectatic change in right lower lobe suggestive of chronic interstitial disease, likely a superimposed pneumonia. IMPRESSION: 1. Acute hypoxemic respiratory failure, likely secondary to pneumonia, community acquired. 2. Dyspnea, likely secondary to chronic interstitial lung disease, most likely due to . 3. History of pulmonary embolism, provoked. PLAN: Continue inhaled bronchodilators, supplemental O2, antibiotic therapy. Pulmonary function tests as outpatient. Also, consider Bactrim suppression therapy in view of patient currently on chronic steroids as well as methotrexate. Obtain followup chest x-rays and cultures. Also, check O2 saturation at rest and post exercise prior to discharge to determine whether patient is a candidate for home O2. ZENOBIA CLAUDIO M.D. FLAQUITO/[id number]
[2016-11-11] MEDS: ALBUTEROL SO4 2.5/IPRATROPIUM 0.5 INH SOL 3 ML VIAL.NEB. NEB SCH (13:50)
[2016-11-11] MEDS: CALCIUM CARBONATE PO SCH (13:53)
[2016-11-11] MEDS: [UNRECOGNIZED DRUG - OTHER] PO SCH (13:53)
[2016-11-11] MEDS: BIOTIN PO SCH (13:53)
--- NOTE | 2016-11-11 18:22 | EKG ---
Test Reason : Blood Pressure : / mmHG Vent. Rate : 098 BPM Atrial Rate : 098 BPM P-R Int : 122 ms QRS Dur : 074 ms QT Int : 338 ms P-R-T Axes : 027 -12 008 degrees QTc Int : 431 ms NORMAL SINUS RHYTHM NONSPECIFIC ST AND T WAVE ABNORMALITY NO PREVIOUS ECGS AVAILABLE Confirmed by MD MARIA MARJORY ([id number]) on 11/11/2016 6:21:37 PM Referred By: MD COLLADO Confirmed By:RAMILA MARIA MD
[2016-11-12] MEDS: ALBUTEROL SO4 2.5/IPRATROPIUM 0.5 INH SOL 3 ML VIAL.NEB. NEB SCH ×5 (00:13→17:36)
[2016-11-12] MEDS: guaiFENesin 200 MG/10 ML 10 ML UNIT-DOSE CUPS PO PRN ×3 (02:51→22:32)
[2016-11-12] MEDS: HEPARIN NA (PORCINE) 5,000 UNITS/ML 1ML VIAL SQ SCH ×3 (06:03→22:33)
--- NOTE | 2016-11-12 07:31 | PN ---
Progress Note, Physician History of Present Illness: PULMONARY ALERT,FEELING BETTER,LESS DYSPNEIC,O2 SAT 91%ON RA - Current Medication List Current Medications: Active Medications Acetaminophen (Tylenol -) 650 mg PO Q6H PRN PRN Reason: FEVER OR PAIN Last Admin: 11/10/16 06:51 Dose: 650 mg Albuterol/Ipratropium (Duoneb -) 1 amp NEB QIDR [facility] Last Admin: 11/12/16 06:04 Dose: Not Given Cholecalciferol (Vitamin D3 -) 2,000 unit PO DAILY [facility] Last Admin: 11/11/16 09:33 Dose: 2,000 unit Folic Acid (Folic Acid -) 1 mg PO DAILY [facility] Last Admin: 11/11/16 09:33 Dose: 1 mg Guaifenesin (Robitussin -) 10 ml PO Q6H PRN PRN Reason: COUGH Last Admin: 11/12/16 02:51 Dose: 10 ml Heparin Sodium (Porcine) (Heparin -) 5,000 unit SQ TID [facility] Last Admin: 11/12/16 06:03 Dose: 5,000 unit Azithromycin (Zithromax 500mg Ivpb (Pre-Docked)) 250 mls @ 250 mls/hr IVPB DAILY [facility] Last Admin: 11/11/16 09:32 Dose: 250 mls/hr Ceftriaxone Sodium (Rocephin 1gm Ivpb (Pre-Docked)) 50 mls @ 100 mls/hr IVPB DAILY [facility] Last Admin: 11/11/16 09:32 Dose: 100 mls/hr Lactobacillus Acidophilus (Bacid -) 1 tab PO DAILY [facility] Last Admin: 11/11/16 10:48 Dose: 1 tab Methotrexate (Mexate -) 12.5 mg PO Davis@1000 [facility] Last Admin: 11/10/16 10:23 Dose: 12.5 mg Methylprednisolone (Medrol -) 6 mg PO DAILY [facility] Last Admin: 11/11/16 09:33 Dose: 6 mg Ondansetron HCl (Zofran Injection) 4 mg IVPB Q6H PRN PRN Reason: NAUSEA Ranitidine HCl (Zantac -) 150 mg PO DAILY [facility] Last Admin: 11/11/16 10:41 Dose: 150 mg - Objective Vital Signs: Vital Signs Temperature 98.8 F 11/12/16 06:00 Pulse Rate 87 11/12/16 06:00 Respiratory Rate 18 11/12/16 06:00 Blood Pressure 138/64 11/12/16 06:00 O2 Sat by Pulse Oximetry (%) 98 11/12/16 06:29 Constitutional: Yes: Well Nourished, Calm Eyes: Yes: WNL HENT: Yes: WNL Neck: Yes: WNL Cardiovascular: Yes: Regular Rate and Rhythm, S1, S2 Respiratory: Yes: Rales (BIBASILAR CRACKLES) Gastrointestinal: Yes: Normal Bowel Sounds, Soft Extremities: Yes: WNL Edema: No Labs: CBC, BMP Problem List - Problems (1) Hx pulmonary embolism Code(s): Z86.711 - PERSONAL HISTORY OF PULMONARY EMBOLISM (2) Hypoxia Code(s): R09.02 - HYPOXEMIA (3) Pneumonia Code(s): J18.9 - PNEUMONIA, UNSPECIFIED ORGANISM (4) Rheumatoid arthritis Code(s): M06.9 - RHEUMATOID ARTHRITIS, UNSPECIFIED (5) Sciatica Code(s): M54.30 - SCIATICA, UNSPECIFIED SIDE (6) Acute hypoxemic respiratory failure Code(s): J96.01 - ACUTE RESPIRATORY FAILURE WITH HYPOXIA (7) Interstitial lung disease Code(s): J84.9 - INTERSTITIAL PULMONARY DISEASE, UNSPECIFIED Assessment/Plan IMP ACUTE HYPOXEMIC RESPIRATORY FAILURE PNEUMONIA ILD RA H/O PE PROVOKED PLAN IV ANTIBIOTICS INHALED BRONCHODILATORS NASAL O2 PFTS OUTPATIENT F/U CHEST CT 6 WKS BACTRIM DS ONE TAB PO TIW CHECK O2 SAT AT REST AND POST EXERCISE ON RA PRIOR TO DISCHARGE T0 DETERMINE IF PT IS A CANDIDATE FOR HOME O2 DR CLAUDIO Problem List - Problems (1) Hx pulmonary embolism Code(s): Z86.711 - PERSONAL HISTORY OF PULMONARY EMBOLISM (2) Hypoxia Code(s): R09.02 - HYPOXEMIA (3) Pneumonia Code(s): J18.9 - PNEUMONIA, UNSPECIFIED ORGANISM (4) Rheumatoid arthritis Code(s): M06.9 - RHEUMATOID ARTHRITIS, UNSPECIFIED (5) Sciatica Code(s): M54.30 - SCIATICA, UNSPECIFIED SIDE (6) Acute hypoxemic respiratory failure Code(s): J96.01 - ACUTE RESPIRATORY FAILURE WITH HYPOXIA (7) Interstitial lung disease Code(s): J84.9 - INTERSTITIAL PULMONARY DISEASE, UNSPECIFIED
[2016-11-12] MEDS ORDERED: PT OWN MED DRAWER 7, Y5N ONE ×4 (08:39→22:31)
[2016-11-12] MEDS: AZITHROMYCIN IVPB 250 ML IVPB SCH (09:40)
[2016-11-12] MEDS: RANITIDINE HCL 150 MG TABLET (FP) PO SCH (09:47)
[2016-11-12] MEDS: methylPREDNISolone 4 MG TABLET PO SCH (09:47)
[2016-11-12] MEDS: CHOLECALCIFEROL (VITAMIN D3) 1,000 UNIT TABLET (FP) PO SCH (09:47)
[2016-11-12] MEDS: FOLIC ACID 1 MG TABLET (FP) PO SCH (09:48)
[2016-11-12] MEDS: CEFTRIAXONE 50 ML IVPB SCH (09:48)
[2016-11-12] MEDS: LACTOBACILLUS ACIDOPHILUS 1 EACH TAB (FP) PO SCH (09:48)
[2016-11-12 09:59] LABS: EOSINOPHIL 2.1 % (0-4.5); MCH 29.2 pg (25.7-33.7); MCHC 32.8 g/dl (32.0-36.0); MEAN PLT VOLUME 9.1 fl (7.5-11.1); NEUTROPHILS 66.7 % (42.8-82.8); PLATELET COUNT 255 K/MM3 (134-434); RDW 15.1 % (11.6-15.6); WHITE BLOOD COUNT 8.1 K/mm3 (4.0-10.8)
[2016-11-12 10:10] LABS: CALCIUM 8.8 mg/dl (8.4-10.2); COCKROFT - GAULT 86.7935; CREATININE 0.7 mg/dl (0.6-1.3); MAGNESIUM 2.1 mg/dL (1.8-2.4); PHOSPHOROUS 3.8 mg/dl (2.5-4.6)
--- NOTE | 2016-11-12 13:47 | PN ---
Physical Exam: SUBJECTIVE: Patient seen and examined, reports feeling slightly improved, pt does reports dyspnea upon exertion. OBJECTIVE: patient is a 80 y/o female with a past medical history of RA and PE. Patient was admitted from the emergency department for bilateral pneumonia. Vital Signs Period Temp Pulse Resp BP Sys/Melgoza Pulse Ox Last 24 Hr 98.0 F-98.8 F 75-87 18-20 120-138/62-71 98-99 PHYSICAL EXAMINATION GENERAL: The patient is awake, alert, and fully oriented, in no acute distress. HEAD: Normal with no signs of trauma. EYES: PERRL, extraocular movements intact, sclera anicteric, conjunctiva clear. No ptosis. ENT: Ears normal, nares patent, oropharynx clear without exudates, moist mucous membranes. NECK: Trachea midline, full range of motion, supple. LUNGS: Breath sounds equal, clear to apexes, bilateral crackles noted, R>L. no wheezes, RR 22, no accessory muscle use. HEART: Regular rate and rhythm, S1, S2 without murmur, rub or gallop. ABDOMEN: Soft, nontender, nondistended, normoactive bowel sounds, no guarding, no rebound, no hepatosplenomegaly, no masses. EXTREMITIES: 2+ pulses, warm, well-perfused, no edema. NEUROLOGICAL: Cranial nerves II through XII grossly intact. Normal speech, gait not observed. PSYCH: Normal mood, normal affect. SKIN: Warm, dry, normal turgor, no rashes or lesions noted Laboratory Results - last 24 hr 11/12/16 11/12/16 07:34 07:34 WBC 8.1 RBC 3.92 Hgb 11.4 Hct 34.9 MCV 89.0 MCHC 32.8 RDW 15.1 Plt Count 255 MPV 9.1 Neutrophils % 66.7 Lymphocytes % 23.7 D Monocytes % 6.5 Eosinophils % 2.1 Basophils % 1.0 D Sodium 140 Potassium 3.7 Chloride 99 Carbon Dioxide 31 H Anion Gap 10 BUN 10 D Creatinine 0.7 Random Glucose 110 H Calcium 8.8 Phosphorus 3.8 Magnesium 2.1 Active Medications Generic Name Dose Route Start Last Admin Trade Name Freq PRN Reason Stop Dose Admin Acetaminophen 650 mg 11/09/16 01:09 11/10/16 06:51 Tylenol - PO 650 mg Q6H PRN Administration FEVER OR PAIN Albuterol/Ipratropium 1 amp 11/11/16 13:45 11/12/16 12:40 Duoneb - NEB 1 amp QIDR [facility] Administration Budesonide/Formoterol Fumarate 2 puff 11/12/16 10:15 Symbicort 80/4.5mcg - IH BID [facility] Cholecalciferol 2,000 unit 11/09/16 10:00 11/12/16 09:47 Vitamin D3 - PO 2,000 unit DAILY PEPPER Administration Folic Acid 1 mg 11/09/16 10:00 11/12/16 09:48 Folic Acid - PO 1 mg DAILY [facility] Administration Guaifenesin 10 ml 11/09/16 21:33 11/12/16 09:48 Robitussin - PO 10 ml Q6H PRN Administration COUGH Heparin Sodium (Porcine) 5,000 unit 11/08/16 22:00 11/12/16 06:03 Heparin - SQ 5,000 unit TID [facility]PPER Administration Azithromycin 250 mls @ 250 mls/hr 11/09/16 10:00 11/12/16 09:40 Zithromax 500mg Ivpb (Pre-Docked) IVPB 250 mls/hr DAILY [facility] Administration Ceftriaxone Sodium 50 mls @ 100 mls/hr 11/09/16 10:00 11/12/16 09:48 Rocephin 1gm Ivpb (Pre-Docked) IVPB 100 mls/hr DAILY [facility] Administration Lactobacillus Acidophilus 1 tab 11/11/16 10:30 11/12/16 09:48 Bacid - PO 1 tab DAILY [facility] Administration Methotrexate 12.5 mg 11/10/16 10:00 11/10/16 10:23 Mexate - PO 12.5 mg Davis@1000 [facility]ER Administration Methylprednisolone 6 mg 11/09/16 10:00 11/12/16 09:47 Medrol - PO 6 mg DAILY [facility] Administration Ondansetron HCl 4 mg 11/08/16 20:53 Zofran Injection IVPB Q6H PRN NAUSEA Ranitidine HCl 150 mg 11/11/16 10:30 11/12/16 09:47 Zantac - PO 150 mg DAILY [facility] Administration Microbiology 11/08/16 17:20 Blood - Peripheral Venous Blood Culture - Preliminary NO GROWTH OBTAINED AFTER 72 HOURS, INCUBATION TO CONTINUE FOR 2 DAYS. 11/08/16 17:05 Blood - Peripheral Venous Blood Culture - Preliminary NO GROWTH OBTAINED AFTER 72 HOURS, INCUBATION TO CONTINUE FOR 2 DAYS. 11/08/16 21:54 Urine - Urine Clean Catch Urine Culture - Final Contaminated: Please Repeat Imaging: CTA as read by Dr. Almazan- No evidence of PE. Interval worsening interstitial and ground glass opacities suggestive of chronic ILD with superimposed infiltrates. No PTX or pleural effusion is noted. CXR as read by Dr. Almazan- Mild perihilar lung markings. Mediastinum and osseous structures appear intact. echo (11/11/16) grade I diastolic dysfunction, mild ASSESSMENT/PLAN: 1) pulm Community Acquired Pneumonia - Continue Rocephin and Zithromax (11/09 - ) - Urine Legionella and sputum culture pending - continue duonebs, start symbicort - no leukocytosis, pt afebrile interstitial lung disease - likely secondary from RA vs copd (former smoker) - keep spo2 above 92% with prn oxygen - pre and post oxygen, flat surface walking 74% on room air, resting 90% on room air, will require home oxygen - pulmonary consulted and following 2. Rheumatoid Arthritis - Continue Prednisone, Methotrexate - f/u with Assurance Sourcing Manager outpatient 3. DVT Prophylaxis - OOB - SCDs - Heparin SQ 4. FEN - Tolerates PO fluids - Replete electrolytes prn - Regular Diet Dispo: Patient requires continued inpatient evaluation of acute medical conditions. case management contacted in regards to home oxygen Code Status: FULL CODE Visit type - Emergency Visit Emergency Visit: Yes ED Registration Date: 11/08/16 Care time: The patient presented to the Emergency Department on the above date and was hospitalized for further evaluation of their emergent condition. - New Patient This patient is new to me today: No - Critical Care Critical Care patient: No - Discharge Referral Referred to [facility] Med P.C.: No
[2016-11-12] MEDS: BUDESONIDE/FORMETEROL FUMARATE 80/4.5 mcg INHALER IH SCH ×2 (14:03→22:35)
[2016-11-12] MEDS: ACETAMINOPHEN 325 MG TABLET (FP) PO PRN (22:32)
[2016-11-13] MEDS: ALBUTEROL SO4 2.5/IPRATROPIUM 0.5 INH SOL 3 ML VIAL.NEB. NEB SCH ×4 (00:05→17:53)
[2016-11-13] MEDS: ACETAMINOPHEN 325 MG TABLET (FP) PO PRN (04:14)
[2016-11-13] MEDS: guaiFENesin 200 MG/10 ML 10 ML UNIT-DOSE CUPS PO PRN ×2 (04:15→21:31)
[2016-11-13] MEDS: HEPARIN NA (PORCINE) 5,000 UNITS/ML 1ML VIAL SQ SCH ×3 (06:09→21:29)
[2016-11-13] MEDS ORDERED: PT OWN MED DRAWER 7, Y5N ONE (09:38)
[2016-11-13] MEDS: AZITHROMYCIN IVPB 250 ML IVPB SCH (09:59)
[2016-11-13] MEDS: CEFTRIAXONE 50 ML IVPB SCH (09:59)
[2016-11-13] MEDS: FOLIC ACID 1 MG TABLET (FP) PO SCH (10:06)
[2016-11-13] MEDS: methylPREDNISolone 4 MG TABLET PO SCH (10:06)
[2016-11-13] MEDS: RANITIDINE HCL 150 MG TABLET (FP) PO SCH (10:07)
[2016-11-13] MEDS: CHOLECALCIFEROL (VITAMIN D3) 1,000 UNIT TABLET (FP) PO SCH (10:07)
[2016-11-13] MEDS: BUDESONIDE/FORMETEROL FUMARATE 80/4.5 mcg INHALER IH SCH ×2 (10:09→21:29)
[2016-11-13] MEDS: LACTOBACILLUS ACIDOPHILUS 1 EACH TAB (FP) PO SCH (10:11)
--- NOTE | 2016-11-13 11:03 | PN ---
Progress Note (short form) - Note Progress Note: PULMONARY CC SOB APPEARS STABLE VSS/AFEBRILE ANICTERIC/NO JVD SCATTERED CRACKLES DIFFUSE B/L POSTERIOR S1S2 RSR BS+ OBESE NO EDEMA LABS/MEDS/NOTES/IMAGING/MICRO/SPO2-PRE/POST NOTED NOTED IMP ACUTE ON CHRONIC HYPOXEMIC RESPIRATORY FAILURE ?METHOTREXATE? CTD PNEUMONIA? ILD RA H/O PE PROVOKED S/P TKR 2003 PLAN IV ANTIBIOTICS/STEROIDS(WILL TRIAL AN INCREASE) INHALED BRONCHODILATORS NASAL O2 PFTS OUTPATIENT F/U CHEST CT 6 WKS BACTRIM DS ONE TAB PO TIW PROPHYLAXSIS UPON DISCHARGE PT IS A CANDIDATE FOR HOME O2 [employer] ENNIS MD
--- NOTE | 2016-11-13 11:24 | PN ---
Physical Exam: SUBJECTIVE: Patient seen and examined, reports feeling short of breath. OBJECTIVE: patient is a 80 y/o female with a past medical history of RA and PE. Patient was admitted from the emergency department for bilateral pneumonia. Vital Signs Period Temp Pulse Resp BP Sys/Melgoza Pulse Ox Last 24 Hr 98.3 F-99.0 F 78-86 20-20 132-152/60-79 96-100 PHYSICAL EXAMINATION GENERAL: The patient is awake, alert, and fully oriented, in no acute distress. HEAD: Normal with no signs of trauma. EYES: PERRL, extraocular movements intact, sclera anicteric, conjunctiva clear. No ptosis. ENT: Ears normal, nares patent, oropharynx clear without exudates, moist mucous membranes. NECK: Trachea midline, full range of motion, supple. LUNGS: Breath sounds equal, clear to apexes, bilateral crackles noted, R>L. no wheezes, RR 22, no accessory muscle use. HEART: Regular rate and rhythm, S1, S2 without murmur, rub or gallop. ABDOMEN: Soft, nontender, nondistended, normoactive bowel sounds, no guarding, no rebound, no hepatosplenomegaly, no masses. EXTREMITIES: 2+ pulses, warm, well-perfused, no edema. NEUROLOGICAL: Cranial nerves II through XII grossly intact. Normal speech, gait not observed. PSYCH: Normal mood, normal affect. SKIN: Warm, dry, normal turgor, no rashes or lesions noted Active Medications Generic Name Dose Route Start Last Admin Trade Name Freq PRN Reason Stop Dose Admin Acetaminophen 650 mg 11/09/16 01:09 11/13/16 04:14 Tylenol - PO 650 mg Q6H PRN Administration FEVER OR PAIN Albuterol/Ipratropium 1 amp 11/11/16 13:45 11/13/16 06:08 Duoneb - NEB 1 amp QIDR [facility] Administration Budesonide/Formoterol Fumarate 2 puff 11/12/16 10:15 11/13/16 10:09 Symbicort 80/4.5mcg - IH 2 puff BID [facility] Administration Cholecalciferol 2,000 unit 11/09/16 10:00 11/13/16 10:07 Vitamin D3 - PO 2,000 unit DAILY [facility] Administration Folic Acid 1 mg 11/09/16 10:00 11/13/16 10:06 Folic Acid - PO 1 mg DAILY [facility] Administration Guaifenesin 10 ml 11/09/16 21:33 11/13/16 04:15 Robitussin - PO 10 ml Q6H PRN Administration COUGH Heparin Sodium (Porcine) 5,000 unit 11/08/16 22:00 11/13/16 06:09 Heparin - SQ 5,000 unit TID [facility] Administration Azithromycin 250 mls @ 250 mls/hr 11/09/16 10:00 11/13/16 09:59 Zithromax 500mg Ivpb (Pre-Docked) IVPB 250 mls/hr DAILY [facility] Administration Ceftriaxone Sodium 50 mls @ 100 mls/hr 11/09/16 10:00 11/13/16 09:59 Rocephin 1gm Ivpb (Pre-Docked) IVPB 100 mls/hr DAILY [facility] Administration Lactobacillus Acidophilus 1 tab 11/11/16 10:30 11/13/16 10:11 Bacid - PO 1 tab DAILY [facility] Administration Methotrexate 12.5 mg 11/10/16 10:00 11/10/16 10:23 Mexate - PO 12.5 mg Davis@1000 [facility] Administration Methylprednisolone Sodium Succinate 40 mg 11/13/16 11:15 Solu-Medrol - IVPB Q6H-IV [facility] Ondansetron HCl 4 mg 11/08/16 20:53 Zofran Injection IVPB Q6H PRN NAUSEA Ranitidine HCl 150 mg 11/11/16 10:30 11/13/16 10:07 Zantac - PO 150 mg DAILY [facility] Administration Microbiology 11/12/16 17:50 Urine - Urine Clean Catch Legionella Antigen - Final, negative 11/12/16 17:50 Urine - Urine Clean Catch Streptococcus pneumoniae Antigen ( M - Final, negative 11/11/16 17:00 Urine - Urine Clean Catch Urine Culture - Final NO GROWTH OBTAINED 11/08/16 17:20 Blood - Peripheral Venous Blood Culture - Preliminary NO GROWTH OBTAINED AFTER 96 HOURS, INCUBATION TO CONTINUE FOR 1 DAYS. 11/08/16 17:05 Blood - Peripheral Venous Blood Culture - Preliminary NO GROWTH OBTAINED AFTER 96 HOURS, INCUBATION TO CONTINUE FOR 1 DAYS. Imaging: CTA as read by Dr. Almazan- No evidence of PE. Interval worsening interstitial and ground glass opacities suggestive of chronic ILD with superimposed infiltrates. No PTX or pleural effusion is noted. CXR as read by Dr. Almazan- Mild perihilar lung markings. Mediastinum and osseous structures appear intact. echo (11/11/16) grade I diastolic dysfunction, mild ASSESSMENT/PLAN: 1) pulm Community Acquired Pneumonia - Continue Rocephin and Zithromax (11/09 - ) - continue duonebs, symbicort - no leukocytosis, pt afebrile - medrol d/c, solumedrol 40mg q6 as per pulmonary - concern for pneumocytis pna, due to methotrexate and medrol long-term use, pt will require bactrim tiw upon discharge interstitial lung disease - likely secondary from RA vs copd (former smoker) - keep spo2 above 92% with prn oxygen - pre and post oxygen, flat surface walking 74% on room air, resting 90% on room air, will require home oxygen - pulmonary consulted and following 2. Rheumatoid Arthritis - Continue Prednisone, Methotrexate - f/u with [employer] Super[employer] outpatient 3. DVT Prophylaxis - OOB - SCDs - Heparin SQ 4. FEN - Tolerates PO fluids - Replete electrolytes prn - Regular Diet Dispo: Patient requires continued inpatient evaluation of acute medical conditions. case management contacted in regards to home oxygen Code Status: FULL CODE Visit type - Emergency Visit Emergency Visit: Yes ED Registration Date: 11/08/16 Care time: The patient presented to the Emergency Department on the above date and was hospitalized for further evaluation of their emergent condition. - New Patient This patient is new to me today: No - Critical Care Critical Care patient: No - Discharge Referral Referred to [facility] Med P.C.: No
[2016-11-13] MEDS: methylPREDNISolone NA SUCC 40 MG/1 ML VIAL IVPB SCH ×3 (14:03→21:28)
[2016-11-13] MEDS ORDERED: BENZOCAINE/MENTH/CETYLPYRD CL 1 EACH LOZENGE MM PRN (18:45)
[2016-11-14] MEDS: ALBUTEROL SO4 2.5/IPRATROPIUM 0.5 INH SOL 3 ML VIAL.NEB. NEB SCH ×3 (00:07→12:54)
[2016-11-14] MEDS: methylPREDNISolone NA SUCC 40 MG/1 ML VIAL IVPB SCH ×3 (02:24→21:21)
[2016-11-14] MEDS: HEPARIN NA (PORCINE) 5,000 UNITS/ML 1ML VIAL SQ SCH ×3 (06:16→21:21)
--- NOTE | 2016-11-14 07:25 | PN ---
Progress Note, Physician History of Present Illness: pulmonary alert,feeling better,less dyspneic,less cough. - Current Medication List Current Medications: Active Medications Acetaminophen (Tylenol -) 650 mg PO Q6H PRN PRN Reason: FEVER OR PAIN Last Admin: 11/13/16 04:14 Dose: 650 mg Albuterol/Ipratropium (Duoneb -) 1 amp NEB QIDR [facility] Last Admin: 11/14/16 06:16 Dose: 1 amp Benzocaine/Menthol (Cepacol Lozenge -) 1 each MM PRN PRN PRN Reason: SORE THROAT Budesonide/Formoterol Fumarate (Symbicort 80/4.5mcg -) 2 puff IH BID [facility] Last Admin: 11/13/16 21:29 Dose: 2 puff Cholecalciferol (Vitamin D3 -) 2,000 unit PO DAILY [facility] Last Admin: 11/13/16 10:07 Dose: 2,000 unit Folic Acid (Folic Acid -) 1 mg PO DAILY [facility] Last Admin: 11/13/16 10:06 Dose: 1 mg Guaifenesin (Robitussin -) 10 ml PO Q6H PRN PRN Reason: COUGH Last Admin: 11/13/16 21:31 Dose: 10 ml Heparin Sodium (Porcine) (Heparin -) 5,000 unit SQ TID [facility] Last Admin: 11/14/16 06:16 Dose: 5,000 unit Azithromycin (Zithromax 500mg Ivpb (Pre-Docked)) 250 mls @ 250 mls/hr IVPB DAILY [facility] Last Admin: 11/13/16 09:59 Dose: 250 mls/hr Ceftriaxone Sodium (Rocephin 1gm Ivpb (Pre-Docked)) 50 mls @ 100 mls/hr IVPB DAILY [facility] Last Admin: 11/13/16 09:59 Dose: 100 mls/hr Lactobacillus Acidophilus (Bacid -) 1 tab PO DAILY [facility] Last Admin: 11/13/16 10:11 Dose: 1 tab Methotrexate (Mexate -) 12.5 mg PO Davis@1000 [facility] Last Admin: 11/10/16 10:23 Dose: 12.5 mg Methylprednisolone Sodium Succinate (Solu-Medrol -) 40 mg IVPB Q6H-IV [facility] Last Admin: 11/14/16 02:24 Dose: 40 mg Ondansetron HCl (Zofran Injection) 4 mg IVPB Q6H PRN PRN Reason: NAUSEA Ranitidine HCl (Zantac -) 150 mg PO DAILY [facility] Last Admin: 11/13/16 10:07 Dose: 150 mg - Objective Vital Signs: Vital Signs Temperature 98.6 F 11/14/16 04:57 Pulse Rate 81 11/14/16 04:57 Respiratory Rate 18 11/14/16 04:57 Blood Pressure 165/74 11/14/16 04:57 O2 Sat by Pulse Oximetry (%) 95 11/14/16 04:57 Constitutional: Yes: Well Nourished, Calm Eyes: Yes: WNL HENT: Yes: WNL Neck: Yes: WNL Cardiovascular: Yes: Regular Rate and Rhythm, S1, S2 Respiratory: Yes: Rhonchi (few whhezes) Gastrointestinal: Yes: Normal Bowel Sounds, Soft Extremities: Yes: WNL Edema: Yes Edema: LLE: Trace, RLE: Trace Labs: CBC, BMP INR, PTT INR 1.31 (0.82-1.09) H 11/08/16 17:05 Problem List - Problems (1) Hx pulmonary embolism Code(s): Z86.711 - PERSONAL HISTORY OF PULMONARY EMBOLISM (2) Hypoxia Code(s): R09.02 - HYPOXEMIA (3) Pneumonia Code(s): J18.9 - PNEUMONIA, UNSPECIFIED ORGANISM (4) Rheumatoid arthritis Code(s): M06.9 - RHEUMATOID ARTHRITIS, UNSPECIFIED (5) Sciatica Code(s): M54.30 - SCIATICA, UNSPECIFIED SIDE (6) Acute hypoxemic respiratory failure Code(s): J96.01 - ACUTE RESPIRATORY FAILURE WITH HYPOXIA (7) Interstitial lung disease Code(s): J84.9 - INTERSTITIAL PULMONARY DISEASE, UNSPECIFIED Assessment/Plan IMP ACUTE HYPOXEMIC RESPIRATORY FAILURE PNEUMONIA ILD RA H/O PE PROVOKED PLAN IV ANTIBIOTICS INHALED BRONCHODILATORS MEDROL SAME DOSE NASAL O2 PFTS OUTPATIENT F/U CHEST CT 6 WKS BACTRIM DS ONE TAB PO TIW START PO MEDROL IN AM IF PT CONTINUES TO IMPROVE HOME O2 DR CLAUDIO Problem List - Problems (1) Hx pulmonary embolism Code(s): Z86.711 - PERSONAL HISTORY OF PULMONARY EMBOLISM (2) Hypoxia Code(s): R09.02 - HYPOXEMIA (3) Pneumonia Code(s): J18.9 - PNEUMONIA, UNSPECIFIED ORGANISM (4) Rheumatoid arthritis Code(s): M06.9 - RHEUMATOID ARTHRITIS, UNSPECIFIED (5) Sciatica Code(s): M54.30 - SCIATICA, UNSPECIFIED SIDE (6) Acute hypoxemic respiratory failure Code(s): J96.01 - ACUTE RESPIRATORY FAILURE WITH HYPOXIA (7) Interstitial lung disease Code(s): J84.9 - INTERSTITIAL PULMONARY DISEASE, UNSPECIFIED
[2016-11-14] MEDS: LACTOBACILLUS ACIDOPHILUS 1 EACH TAB (FP) PO SCH (09:33)
[2016-11-14] MEDS: FOLIC ACID 1 MG TABLET (FP) PO SCH (09:34)
[2016-11-14] MEDS: CEFTRIAXONE 50 ML IVPB SCH (09:35)
[2016-11-14] MEDS: BUDESONIDE/FORMETEROL FUMARATE 80/4.5 mcg INHALER IH SCH ×2 (09:35→21:20)
[2016-11-14] MEDS: CHOLECALCIFEROL (VITAMIN D3) 1,000 UNIT TABLET (FP) PO SCH (09:36)
[2016-11-14] MEDS: AZITHROMYCIN IVPB 250 ML IVPB SCH (10:04)
[2016-11-14] MEDS: RANITIDINE HCL 150 MG TABLET (FP) PO SCH (10:11)
--- NOTE | 2016-11-14 13:40 | PN ---
Physical Exam: SUBJECTIVE: Patient seen and examined, patient reports feeling better, denies any chest pain, does report dyspnea upon exertion OBJECTIVE: patient is a 80 y/o female with a past medical history of RA and PE. Patient was admitted from the emergency department for bilateral pneumonia and hypoxia. Vital Signs Period Temp Pulse Resp BP Sys/Melgoza Pulse Ox Last 24 Hr 98.4 F-98.8 F 73-84 18-20 130-165/69-74 93-99 GENERAL: The patient is awake, alert, and fully oriented, in no acute distress. HEAD: Normal with no signs of trauma. EYES: PERRL, extraocular movements intact, sclera anicteric, conjunctiva clear. No ptosis. ENT: Ears normal, nares patent, oropharynx clear without exudates, moist mucous membranes. NECK: Trachea midline, full range of motion, supple. LUNGS: Breath sounds equal, clear to auscultation bilateral to apexes, fine crackles to bases, moist cough noted. no wheezes, no accessory muscle use. HEART: Regular rate and rhythm, S1, S2 without murmur, rub or gallop. ABDOMEN: Soft, nontender, nondistended, normoactive bowel sounds, no guarding, no rebound, no hepatosplenomegaly, no masses. EXTREMITIES: 2+ pulses, warm, well-perfused, no edema. NEUROLOGICAL: Cranial nerves II through XII grossly intact. Normal speech, gait not observed. PSYCH: Normal mood, normal affect. SKIN: Warm, dry, normal turgor, no rashes or lesions noted Active Medications Generic Name Dose Route Start Last Admin Trade Name Freq PRN Reason Stop Dose Admin Acetaminophen 650 mg 11/09/16 01:09 11/13/16 04:14 Tylenol - PO 650 mg Q6H PRN Administration FEVER OR PAIN Albuterol/Ipratropium 1 amp 11/11/16 13:45 11/14/16 12:54 Duoneb - NEB 1 amp QIDR [facility] Administration Benzocaine/Menthol 1 each 11/13/16 18:45 Cepacol Lozenge - MM PRN PRN SORE THROAT Budesonide/Formoterol Fumarate 2 puff 11/12/16 10:15 11/14/16 09:35 Symbicort 80/4.5mcg - IH 2 puff BID [facility]ER Administration Cholecalciferol 2,000 unit 11/09/16 10:00 11/14/16 09:36 Vitamin D3 - PO 2,000 unit DAILY [facility] Administration Folic Acid 1 mg 11/09/16 10:00 11/14/16 09:34 Folic Acid - PO 1 mg DAILY [facility]ER Administration Guaifenesin 10 ml 11/09/16 21:33 11/13/16 21:31 Robitussin - PO 10 ml Q6H PRN Administration COUGH Heparin Sodium (Porcine) 5,000 unit 11/08/16 22:00 11/14/16 06:16 Heparin - SQ 5,000 unit TID [facility]ER Administration Azithromycin 250 mls @ 250 mls/hr 11/09/16 10:00 11/14/16 10:04 Zithromax 500mg Ivpb (Pre-Docked) IVPB 250 mls/hr DAILY [facility] Administration Ceftriaxone Sodium 50 mls @ 100 mls/hr 11/09/16 10:00 11/14/16 09:35 Rocephin 1gm Ivpb (Pre-Docked) IVPB 100 mls/hr DAILY [facility] Administration Lactobacillus Acidophilus 1 tab 11/11/16 10:30 11/14/16 09:33 Bacid - PO 1 tab DAILY [facility] Administration Methotrexate 12.5 mg 11/10/16 10:00 11/10/16 10:23 Mexate - PO 12.5 mg Davis@1000 [facility] Administration Methylprednisolone Sodium Succinate 40 mg 11/13/16 11:30 11/14/16 09:33 Solu-Medrol - IVPB 40 mg Q6H-IV [facility] Administration Ondansetron HCl 4 mg 11/08/16 20:53 Zofran Injection IVPB Q6H PRN NAUSEA Ranitidine HCl 150 mg 11/11/16 10:30 11/14/16 10:11 Zantac - PO 150 mg DAILY [facility]PPER Administration Microbiology 11/08/16 17:20 Blood - Peripheral Venous Blood Culture - Final NO GROWTH AFTER 5 DAYS INCUBATION 11/08/16 17:05 Blood - Peripheral Venous Blood Culture - Final NO GROWTH AFTER 5 DAYS INCUBATION 11/12/16 17:50 Urine - Urine Clean Catch Legionella Antigen - Final, negative 11/12/16 17:50 Urine - Urine Clean Catch Streptococcus pneumoniae Antigen ( M - Final, negatitv 11/11/16 17:00 Urine - Urine Clean Catch Urine Culture - Final NO GROWTH OBTAINED 11/08/16 21:54 Urine - Urine Clean Catch Urine Culture - Final Contaminated: Please Repeat Imaging: CTA as read by Dr. Almazan- No evidence of PE. Interval worsening interstitial and ground glass opacities suggestive of chronic ILD with superimposed infiltrates. No PTX or pleural effusion is noted. CXR as read by Dr. Almazan- Mild perihilar lung markings. Mediastinum and osseous structures appear intact. echo (11/11/16) grade I diastolic dysfunction, mild ASSESSMENT/PLAN: 1) pulm Community Acquired Pneumonia - Continue Rocephin (11/09-) and Zithromax (11/09 - 11/14) - continue duonebs, symbicort - no leukocytosis, pt afebrile - solumedrol 40mg q6 will taper to TID - concern for pneumocytis pna, due to methotrexate and medrol long term acute care registered nurse use, pt will require bactrim tiw upon discharge interstitial lung disease - likely secondary from RA vs copd (former smoker) - keep spo2 above 92% with prn oxygen - pre and post oxygen, flat surface walking 74% on room air, resting 90% on room air, will require home oxygen - pulmonary consulted and following 2. Rheumatoid Arthritis - Continue Prednisone, Methotrexate - f/u with [employer] outpatient 3. DVT Prophylaxis - OOB - SCDs - Heparin SQ 4. FEN - Tolerates PO fluids - Replete electrolytes prn - Regular Diet Dispo: Patient requires continued inpatient evaluation of acute medical conditions. case management contacted in regards to home oxygen Code Status: FULL CODE Visit type - Emergency Visit Emergency Visit: Yes ED Registration Date: 11/08/16 Care time: The patient presented to the Emergency Department on the above date and was hospitalized for further evaluation of their emergent condition. - New Patient This patient is new to me today: No - Critical Care Critical Care patient: No - Discharge Referral Referred to [facility] Med P.C.: No
[2016-11-15] MEDS: ALBUTEROL SO4 2.5/IPRATROPIUM 0.5 INH SOL 3 ML VIAL.NEB. NEB SCH ×4 (00:05→17:37)
[2016-11-15] MEDS: guaiFENesin 200 MG/10 ML 10 ML UNIT-DOSE CUPS PO PRN (00:05)
[2016-11-15] MEDS: HEPARIN NA (PORCINE) 5,000 UNITS/ML 1ML VIAL SQ SCH ×3 (06:18→21:56)
[2016-11-15] MEDS: methylPREDNISolone NA SUCC 40 MG/1 ML VIAL IVPB SCH ×2 (06:18→21:57)
--- NOTE | 2016-11-15 06:56 | PN ---
Progress Note, Physician History of Present Illness: pulmonary feeling better,less dyspneic - Current Medication List Current Medications: Active Medications Acetaminophen (Tylenol -) 650 mg PO Q6H PRN PRN Reason: FEVER OR PAIN Last Admin: 11/13/16 04:14 Dose: 650 mg Albuterol/Ipratropium (Duoneb -) 1 amp NEB QIDR [facility] Last Admin: 11/15/16 06:18 Dose: 1 amp Benzocaine/Menthol (Cepacol Lozenge -) 1 each MM PRN PRN PRN Reason: SORE THROAT Budesonide/Formoterol Fumarate (Symbicort 80/4.5mcg -) 2 puff IH BID [facility] Last Admin: 11/14/16 21:20 Dose: 2 puff Cholecalciferol (Vitamin D3 -) 2,000 unit PO DAILY [facility] Last Admin: 11/14/16 09:36 Dose: 2,000 unit Folic Acid (Folic Acid -) 1 mg PO DAILY [facility] Last Admin: 11/14/16 09:34 Dose: 1 mg Guaifenesin (Robitussin -) 10 ml PO Q6H PRN PRN Reason: COUGH Last Admin: 11/15/16 00:05 Dose: 10 ml Heparin Sodium (Porcine) (Heparin -) 5,000 unit SQ TID [facility] Last Admin: 11/15/16 06:18 Dose: 5,000 unit Ceftriaxone Sodium (Rocephin 1gm Ivpb (Pre-Docked)) 50 mls @ 100 mls/hr IVPB DAILY [facility] Last Admin: 11/14/16 09:35 Dose: 100 mls/hr Lactobacillus Acidophilus (Bacid -) 1 tab PO DAILY [facility] Last Admin: 11/14/16 09:33 Dose: 1 tab Methotrexate (Mexate -) 12.5 mg PO Davis@1000 [facility] Last Admin: 11/10/16 10:23 Dose: 12.5 mg Methylprednisolone Sodium Succinate (Solu-Medrol -) 40 mg IVPB TID [facility] Last Admin: 11/15/16 06:18 Dose: 40 mg Ondansetron HCl (Zofran Injection) 4 mg IVPB Q6H PRN PRN Reason: NAUSEA Ranitidine HCl (Zantac -) 150 mg PO DAILY [facility] Last Admin: 11/14/16 10:11 Dose: 150 mg - Objective Vital Signs: Vital Signs Temperature 97.9 F 06/16/17 06:00 Pulse Rate 65 11/15/16 06:00 Respiratory Rate 19 11/15/16 06:00 Blood Pressure 146/73 11/15/16 06:00 O2 Sat by Pulse Oximetry (%) 100 11/15/16 06:26 Constitutional: Yes: Well Nourished, Calm Eyes: Yes: WNL HENT: Yes: WNL Neck: Yes: WNL Cardiovascular: Yes: Regular Rate and Rhythm, S1, S2 Respiratory: Yes: Rales, Rhonchi (few rhonchi) Gastrointestinal: Yes: Normal Bowel Sounds, Soft Extremities: Yes: WNL Edema: Yes Edema: LLE: Trace, RLE: Trace Labs: CBC, BMP Problem List - Problems (1) Hx pulmonary embolism Code(s): Z86.711 - PERSONAL HISTORY OF PULMONARY EMBOLISM (2) Hypoxia Code(s): R09.02 - HYPOXEMIA (3) Pneumonia Code(s): J18.9 - PNEUMONIA, UNSPECIFIED ORGANISM (4) Rheumatoid arthritis Code(s): M06.9 - RHEUMATOID ARTHRITIS, UNSPECIFIED (5) Sciatica Code(s): M54.30 - SCIATICA, UNSPECIFIED SIDE (6) Acute hypoxemic respiratory failure Code(s): J96.01 - ACUTE RESPIRATORY FAILURE WITH HYPOXIA (7) Interstitial lung disease Code(s): J84.9 - INTERSTITIAL PULMONARY DISEASE, UNSPECIFIED Assessment/Plan IMP ACUTE HYPOXEMIC RESPIRATORY FAILURE PNEUMONIA ILD RA H/O PE PROVOKED PLAN IV ANTIBIOTICS INHALED BRONCHODILATORS NASAL O2 PFTS OUTPATIENT F/U CHEST CT 6 WKS BACTRIM DS ONE TAB PO TIW MEDROL TAPER HOME O2 DR BRILL Problem List - Problems (1) Hx pulmonary embolism Code(s): Z86.711 - PERSONAL HISTORY OF PULMONARY EMBOLISM (2) Hypoxia Code(s): R09.02 - HYPOXEMIA (3) Pneumonia Code(s): J18.9 - PNEUMONIA, UNSPECIFIED ORGANISM (4) Rheumatoid arthritis Code(s): M06.9 - RHEUMATOID ARTHRITIS, UNSPECIFIED (5) Sciatica Code(s): M54.30 - SCIATICA, UNSPECIFIED SIDE (6) Acute hypoxemic respiratory failure Code(s): J96.01 - ACUTE RESPIRATORY FAILURE WITH HYPOXIA (7) Interstitial lung disease Code(s): J84.9 - INTERSTITIAL PULMONARY DISEASE, UNSPECIFIED
--- NOTE | 2016-11-15 08:05 | PN ---
Physical Exam: SUBJECTIVE: Patient seen and examined. Dyspnea improved, still has some with ambulation. Cough productive of scant yellow sputum. OBJECTIVE: Vital Signs Period Temp Pulse Resp BP Sys/Melgoza Pulse Ox Last 24 Hr 97.9 F-98.6 F 65-84 19-19 145-152/73-85 93-100 GENERAL: The patient is awake, alert, and fully oriented, in no acute distress. HEAD: Normal with no signs of trauma. EYES: PERRL, extraocular movements intact, sclera anicteric, conjunctiva clear. No ptosis. ENT: Ears normal, nares patent, oropharynx clear without exudates, moist mucous membranes. NECK: Trachea midline, full range of motion, supple. LUNGS: Breath sounds equal, clear to auscultation bilaterally, no wheezes, no crackles, no accessory muscle use. HEART: Regular rate and rhythm, S1, S2 without murmur, rub or gallop. ABDOMEN: Soft, nontender, nondistended, normoactive bowel sounds, no guarding, no rebound, no hepatosplenomegaly, no masses. EXTREMITIES: 2+ pulses, warm, well-perfused, no edema. NEUROLOGICAL: Cranial nerves II through XII grossly intact. Normal speech, gait not observed. PSYCH: Normal mood, normal affect. SKIN: Warm, dry, normal turgor, no rashes or lesions noted Active Medications Generic Name Dose Route Start Last Admin Trade Name Freq PRN Reason Stop Dose Admin Acetaminophen 650 mg 11/09/16 01:09 11/13/16 04:14 Tylenol - PO 650 mg Q6H PRN Administration FEVER OR PAIN Albuterol/Ipratropium 1 amp 11/11/16 13:45 11/15/16 06:18 Duoneb - NEB 1 amp QIDR [facility] Administration Benzocaine/Menthol 1 each 11/13/16 18:45 Cepacol Lozenge - MM PRN PRN SORE THROAT Budesonide/Formoterol Fumarate 2 puff 11/12/16 10:15 11/14/16 21:20 Symbicort 80/4.5mcg - IH 2 puff BID [facility] Administration Cholecalciferol 2,000 unit 11/09/16 10:00 11/14/16 09:36 Vitamin D3 - PO 2,000 unit DAILY [facility] Administration Folic Acid 1 mg 11/09/16 10:00 11/14/16 09:34 Folic Acid - PO 1 mg DAILY [facility] Administration Guaifenesin 10 ml 11/09/16 21:33 11/15/16 00:05 Robitussin - PO 10 ml Q6H PRN Administration COUGH Heparin Sodium (Porcine) 5,000 unit 11/08/16 22:00 11/15/16 06:18 Heparin - SQ 5,000 unit TID [facility] Administration Ceftriaxone Sodium 50 mls @ 100 mls/hr 11/09/16 10:00 11/14/16 09:35 Rocephin 1gm Ivpb (Pre-Docked) IVPB 100 mls/hr DAILY [facility] Administration Lactobacillus Acidophilus 1 tab 11/11/16 10:30 11/14/16 09:33 Bacid - PO 1 tab DAILY [facility] Administration Methotrexate 12.5 mg 11/10/16 10:00 11/10/16 10:23 Mexate - PO 12.5 mg Davis@1000 [facility] Administration Methylprednisolone Sodium Succinate 40 mg 11/14/16 22:00 11/15/16 06:18 Solu-Medrol - IVPB 40 mg TID [facility] Administration Ondansetron HCl 4 mg 11/08/16 20:53 Zofran Injection IVPB Q6H PRN NAUSEA Ranitidine HCl 150 mg 11/11/16 10:30 11/14/16 10:11 Zantac - PO 150 mg DAILY [facility] Administration CTA: No evidence of PE. Interval worsening interstitial and ground glass opacities suggestive of chronic ILD with superimposed infiltrates. No PTX or pleural effusion is noted. CXR: Mild perihilar lung markings. Mediastinum and osseous structures appear intact. Echo (11/11/16): grade I diastolic dysfunction, mild ASSESSMENT/PLAN: 1) pulm Community Acquired Pneumonia - Continue Rocephin (11/09-) and Zithromax (11/09 - 11/14) - continue duonebs, symbicort - no leukocytosis, pt afebrile - solumedrol 40mg q6 will taper to TID - concern for pneumocytis pna, due to methotrexate and medrol ocean transportation intermediary use, pt will require bactrim tiw upon discharge interstitial lung disease - likely secondary from RA vs copd (former smoker) - keep spo2 above 92% with prn oxygen - pre and post oxygen, flat surface walking 74% on room air, resting 90% on room air, will require home oxygen - pulmonary consulted and following 2. Rheumatoid Arthritis - Continue Prednisone, Methotrexate - f/u with [employer] outpatient 3. DVT Prophylaxis - OOB - SCDs - Heparin SQ 4. FEN - Tolerates PO fluids - Replete electrolytes prn - Regular Diet Dispo: Likely discharge on long steroid taper and Bactrim when home O2 available , dyspnea on ambulation improved. Rheum/pulm followup. Code Status: FULL CODE Visit type - Emergency Visit Emergency Visit: Yes ED Registration Date: 11/08/16 Care time: The patient presented to the Emergency Department on the above date and was hospitalized for further evaluation of their emergent condition. - New Patient This patient is new to me today: Yes Date on this admission: 11/15/16 - Critical Care Critical Care patient: No - Discharge Referral Referred to [facility] Med P.C.: No
[2016-11-15] MEDS ORDERED: PT OWN MED DRAWER 7, Y5N ONE (10:02)
[2016-11-15] MEDS: RANITIDINE HCL 150 MG TABLET (FP) PO SCH (10:08)
[2016-11-15] MEDS: CHOLECALCIFEROL (VITAMIN D3) 1,000 UNIT TABLET (FP) PO SCH (10:08)
[2016-11-15] MEDS: FOLIC ACID 1 MG TABLET (FP) PO SCH (10:08)
[2016-11-15] MEDS: CEFTRIAXONE 50 ML IVPB SCH (10:08)
[2016-11-15] MEDS: BUDESONIDE/FORMETEROL FUMARATE 80/4.5 mcg INHALER IH SCH ×2 (10:09→21:57)
[2016-11-15] MEDS: LACTOBACILLUS ACIDOPHILUS 1 EACH TAB (FP) PO SCH (10:10)
[2016-11-15 22:52] VITALS: PULSE 67
[2016-11-16] MEDS: ALBUTEROL SO4 2.5/IPRATROPIUM 0.5 INH SOL 3 ML VIAL.NEB. NEB SCH ×2 (00:57→06:38)
[2016-11-16 05:57] VITALS: BP 146/63; TEMP 98.2
[2016-11-16] MEDS: HEPARIN NA (PORCINE) 5,000 UNITS/ML 1ML VIAL SQ SCH (06:38)
--- NOTE | 2016-11-16 07:13 | PN ---
Progress Note, Physician History of Present Illness: pulmonary alert.feeling better,-sob,-cough,-cp - Current Medication List Current Medications: Active Medications Acetaminophen (Tylenol -) 650 mg PO Q6H PRN PRN Reason: FEVER OR PAIN Last Admin: 11/13/16 04:14 Dose: 650 mg Albuterol/Ipratropium (Duoneb -) 1 amp NEB QIDR [facility] Last Admin: 11/16/16 06:38 Dose: 1 amp Benzocaine/Menthol (Cepacol Lozenge -) 1 each MM PRN PRN PRN Reason: SORE THROAT Budesonide/Formoterol Fumarate (Symbicort 80/4.5mcg -) 2 puff IH BID [facility] Last Admin: 11/15/16 21:57 Dose: 2 puff Cholecalciferol (Vitamin D3 -) 2,000 unit PO DAILY [facility] Last Admin: 11/15/16 10:08 Dose: 2,000 unit Folic Acid (Folic Acid -) 1 mg PO DAILY [facility] Last Admin: 11/15/16 10:08 Dose: 1 mg Guaifenesin (Robitussin -) 10 ml PO Q6H PRN PRN Reason: COUGH Last Admin: 11/15/16 00:05 Dose: 10 ml Heparin Sodium (Porcine) (Heparin -) 5,000 unit SQ TID [facility] Last Admin: 11/16/16 06:38 Dose: 5,000 unit Ceftriaxone Sodium (Rocephin 1gm Ivpb (Pre-Docked)) 50 mls @ 100 mls/hr IVPB DAILY [facility] Last Admin: 11/15/16 10:08 Dose: 100 mls/hr Lactobacillus Acidophilus (Bacid -) 1 tab PO DAILY [facility] Last Admin: 11/15/16 10:10 Dose: 1 tab Methotrexate (Mexate -) 12.5 mg PO Davis@1000 [facility] Last Admin: 11/10/16 10:23 Dose: 12.5 mg Methylprednisolone Sodium Succinate (Solu-Medrol -) 40 mg IVPB BID [facility] Last Admin: 11/15/16 21:57 Dose: 40 mg Ondansetron HCl (Zofran Injection) 4 mg IVPB Q6H PRN PRN Reason: NAUSEA Ranitidine HCl (Zantac -) 150 mg PO DAILY [facility] Last Admin: 11/15/16 10:08 Dose: 150 mg - Objective Vital Signs: Vital Signs Temperature 98.2 F 11/16/16 05:56 Pulse Rate 67 11/16/16 05:56 Respiratory Rate 20 11/16/16 05:56 Blood Pressure 146/63 11/16/16 05:56 O2 Sat by Pulse Oximetry (%) 99 11/16/16 05:56 Constitutional: Yes: Well Nourished, Calm Eyes: Yes: WNL HENT: Yes: WNL Neck: Yes: WNL Cardiovascular: Yes: Regular Rate and Rhythm, S1, S2 Respiratory: Yes: Diminished, Rales (FEW BIBASILAR CRACKLES) Gastrointestinal: Yes: WNL Extremities: Yes: WNL Edema: Yes Labs: CBC, BMP Problem List - Problems (1) Hx pulmonary embolism Code(s): Z86.711 - PERSONAL HISTORY OF PULMONARY EMBOLISM (2) Hypoxia Code(s): R09.02 - HYPOXEMIA (3) Pneumonia Code(s): J18.9 - PNEUMONIA, UNSPECIFIED ORGANISM (4) Rheumatoid arthritis Code(s): M06.9 - RHEUMATOID ARTHRITIS, UNSPECIFIED (5) Sciatica Code(s): M54.30 - SCIATICA, UNSPECIFIED SIDE (6) Acute hypoxemic respiratory failure Code(s): J96.01 - ACUTE RESPIRATORY FAILURE WITH HYPOXIA (7) Interstitial lung disease Code(s): J84.9 - INTERSTITIAL PULMONARY DISEASE, UNSPECIFIED Assessment/Plan IMP ACUTE HYPOXEMIC RESPIRATORY FAILURE PNEUMONIA ILD RA H/O PE PROVOKED PLAN PO ANTIBIOTICS INHALED BRONCHODILATORS NASAL O2 PFTS OUTPATIENT F/U CHEST CT 6 WKS BACTRIM DS ONE TAB PO TIW MEDROL TAPER OUTPATIENT HOME O2 DR BRILL Problem List - Problems (1) Hx pulmonary embolism Code(s): Z86.711 - PERSONAL HISTORY OF PULMONARY EMBOLISM (2) Hypoxia Code(s): R09.02 - HYPOXEMIA (3) Pneumonia Code(s): J18.9 - PNEUMONIA, UNSPECIFIED ORGANISM (4) Rheumatoid arthritis Code(s): M06.9 - RHEUMATOID ARTHRITIS, UNSPECIFIED (5) Sciatica Code(s): M54.30 - SCIATICA, UNSPECIFIED SIDE (6) Acute hypoxemic respiratory failure Code(s): J96.01 - ACUTE RESPIRATORY FAILURE WITH HYPOXIA (7) Interstitial lung disease Code(s): J84.9 - INTERSTITIAL PULMONARY DISEASE, UNSPECIFIED
--- NOTE | 2016-11-16 09:08 | DS ---
Physical Exam: SUBJECTIVE: Patient seen and examined OBJECTIVE: Vital Signs Period Temp Pulse Resp BP Sys/Melgoza Pulse Ox Last 24 Hr 97.7 F-98.2 F 67-74 20-20 135-146/63-69 97-100 PHYSICAL EXAM GENERAL: The patient is awake, alert, and fully oriented, in no acute distress. HEAD: Normal with no signs of trauma. EYES: PERRL, extraocular movements intact, sclera anicteric, conjunctiva clear. ENT: Ears normal, nares patent, oropharynx clear without exudates, moist mucous membranes. NECK: Trachea midline, full range of motion, supple. LUNGS: Breath sounds equal, clear to auscultation bilaterally, no wheezes, no crackles, no accessory muscle use. HEART: Regular rate and rhythm, S1, S2 without murmur, rub or gallop. ABDOMEN: Soft, nontender, nondistended, normoactive bowel sounds, no guarding, no rebound, no hepatosplenomegaly, no masses. EXTREMITIES: 2+ pulses, warm, well-perfused, no edema. NEUROLOGICAL: Cranial nerves II through XII grossly intact. Normal speech, gait not observed. PSYCH: Normal mood, normal affect. SKIN: Warm, dry, normal turgor, no rashes or lesions noted. LABS HOSPITAL COURSE: Date of Admission:11/08/16 Date of Discharge: 11/16/16 Discharge Summary Reason For Visit: PNEUMONIA/HYPOXIA Current Active Problems Pneumonia (Acute) Hx pulmonary embolism (Chronic) Interstitial lung disease (Chronic) Rheumatoid arthritis (Chronic) Sciatica (Chronic) Condition: Improved - Instructions Diet, Activity, Other Instructions: -Continue all of your prescribed medications, with the following changes: -Take Medrol as prescribed, initially at a higher dose, then tapering down to your original dose of 6mg daily (instructions on the bottle) -Add Bactrim 1 tab three times a week to prevent infection -Use home oxygen -Follow up with Dr. Pedraza and Dr. Gaspar next week -Return here for fever (temperature over 100.4), difficulty breathing, chest pain, or any other concerning symptoms Referrals: Kvng Gaspar MD [Staff Physician] - Jem Pedraza MD [Primary Care Provider] - Disposition: HOME - Home Medications Comprehensive Discharge Medication List: Ambulatory Orders Biotin/Calcium Carbonate [Biotin 800 Mcg Tablet] 1 each PO DAILY tablet Cholecalciferol (Vitamin D3) [Vitamin D3] 2,000 unit PO DAILY capsule 06/06/16 Folic Acid 1 mg PO DAILY tablet 09/09/16 Methotrexate Sodium [Methotrexate] 2.5 mg PO 5 TABS ON SUNDAYS tablet 11/08/16 Methylprednisolone [Medrol Dose Ish] 4 mg PO 1 AND 1/2 TABS DAILY tablet Methylprednisolone [Medrol -] 4 mg PO DAILY #30 tablet 11/16/16 Sulfamethoxazole/Trimethoprim [Bactrim Ds Tablet] 1 each PO UTDICT #30 tablet This patient is new to me today: No Emergency Visit: Yes ED Registration Date: 11/08/16 Care time: The patient presented to the Emergency Department on the above date and was hospitalized for further evaluation of their emergent condition. Critical Care patient: No - Discharge Referral Referred to [facility] Yes Physician Referral: Jem Pedraza MD (Int Med)
[2016-11-16] MEDS: CHOLECALCIFEROL (VITAMIN D3) 1,000 UNIT TABLET (FP) PO SCH (09:53)
[2016-11-16] MEDS: FOLIC ACID 1 MG TABLET (FP) PO SCH (09:53)
[2016-11-16] MEDS: methylPREDNISolone NA SUCC 40 MG/1 ML VIAL IVPB SCH (09:54)
[2016-11-16] MEDS: CEFTRIAXONE 50 ML IVPB SCH (09:54)
[2016-11-16] MEDS: LACTOBACILLUS ACIDOPHILUS 1 EACH TAB (FP) PO SCH (09:54)
[2016-11-16] MEDS: RANITIDINE HCL 150 MG TABLET (FP) PO SCH (09:56)
[2016-11-16] MEDS: BUDESONIDE/FORMETEROL FUMARATE 80/4.5 mcg INHALER IH SCH (09:56)
== END 2016-11-16 12:10 | disposition home or self-care (01) | DRG 193 ==
LOC: FER 16:40 → FM/S 21:11
PROVIDERS: ADMIT Internal Medicine; ATTEND Registered Nurse Emergency
DX: J18.9 Pneumonia, unspecified organism (principal); J96.01 Acute respiratory failure with hypoxia; J84.9 Interstitial pulmonary disease, unspecified; M06.9 Rheumatoid arthritis, unspecified; Z86.711 Personal history of pulmonary embolism; K21.9 Gastro-esophageal reflux disease without esophagitis; M35.3 Polymyalgia rheumatica; Z87.891 Personal history of nicotine dependence; M54.30 Sciatica, unspecified side
CPT/HCPCS: 36415; 71010-TC; 71275-TC; 80048; 80053; 81003; 81015; 82550; 83605; 83735; 83880; 84100; 84484; 85025; 85610; 85730; 87040; 87070; 87086; 87205; 87899; 93005; 93306-TC; 94640; 94761; 99285-25; J1644; J8610